=== PATIENT | female | born 1990 ===

== ENCOUNTER 2019-07-25 02:08 | Emergency (ER) | payer OTHER ==
--- NOTE | 2019-07-25 02:59 | EDM.PDOC ---
ED HPI GENERAL MEDICAL PROBLEM - General Chief Complaint: POURER BUGGY LADLE Problem Stated Complaint: AND SPOTTING Time Seen by Provider: 07/25/19 03:56 - History of Present Illness INITIAL COMMENTS - FREE TEXT/NARRATIVE: HISTORY AND PHYSICAL: History of present illness: Patient 28-year-old female who presents with a positive home test and spotting 24 hours she denies cramping or pain fever chills trauma nausea vomiting or other complaints. Review of systems: As per history of present illness and below otherwise all systems reviewed and negative. Past medical history: As per history of present illness and as reviewed below otherwise noncontributory. Surgical history: As per history of present illness and as reviewed below otherwise noncontributory. Social history: No reported history of drug or alcohol abuse. Family history: As per history of present illness and as reviewed below otherwise noncontributory. Physical exam: HEENT: Atraumatic, normocephalic, pupils reactive, negative for conjunctival pallor or scleral icterus, mucous membranes moist, throat clear, neck supple, nontender, trachea midline. Lungs: Clear to auscultation, breath sounds equal bilaterally, chest nontender. Heart: S1S2, regular, negative for clicks, rubs, or JVD. Abdomen: Soft, nondistended, nontender. Negative for masses or hepatosplenomegaly. Negative for costovertebral tenderness. Pelvis: Stable nontender. Genitourinary: Deferred. Rectal: Deferred. Extremities: Atraumatic, negative for cords or calf pain. Neurovascular unremarkable. Neuro: Awake, alert, oriented. Cranial nerves II through XII unremarkable. Cerebellum unremarkable. Motor and sensory unremarkable throughout. Exam nonfocal. Diagnostics: CBC CMP ABO Rh quantitative beta first trimester ultrasound Therapeutics: None Impression: # 1 threatened Definitive disposition and diagnosis as appropriate pending reevaluation and review of above. lower L abdominal crampingh Pain Score (Numeric/FACES): 3 - Related Data Allergies Allergy/AdvReac Type Severity Reaction Status Date / Time No Known Allergies Allergy Verified 07/25/19 02:19 Home Meds: Home Meds Pnv No.95/Ferrous Fum/Folic AC [ Caplet] 1 each PO DAILY 12/14/18 [ History] Past Medical History POURER BUGGY LADLE History: Reports: Other POURER BUGGY LADLE History: currently 29 weeks Endocrine/Metabolic History: Reports: Diabetes, Gestational - Infectious Disease History Infectious Disease History: Reports: Chicken Pox - Past Surgical History GI Surgical History: Reports: Appendectomy Social & Family History - Tobacco Use Smoking Status *Q: Never Smoker - Recreational Drug Use Recreational Drug Use: No ED ROS GENERAL - Review of Systems Review Of Systems: ROS reveals no pertinent complaints other than HPI. 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 She was prescribed Keflex. She is to follow-up for repeat quantitative beta on Sunday. Last Recorded V/S: Last Vital Signs Temp 35.9 C 07/25/19 02:15 Pulse 71 07/25/19 02:15 Resp 18 07/25/19 02:15 BP 114/76 07/25/19 02:15 Pulse Ox - Orders/Labs/Meds Orders: Active Orders 24 hr Category Date Time Status CULTURE URINE [RM] Stat Lab 07/25/19 02:48 Received Labs: Laboratory Tests 07/25/19 07/25/19 07/25/19 Range/Units 02:31 02:31 02:31 WBC 7.21 (4.0-11.0) K/uL RBC 4.40 (4.30-5.90) M/uL Hgb 13.3 (12.0-16.0) g/dL Hct 39.4 (36.0-46.0) % MCV 89.5 (80.0-98.0) fL MCH 30.2 (27.0-32.0) pg MCHC 33.8 (31.0-37.0) g/dL RDW Std Deviation 41.8 (28.0-62.0) fl RDW Coeff of Katie 13 (11.0-15.0) % Plt Count 212 (150-400) K/uL MPV 11.00 (7.40-12.00) fL Neut % (Auto) 52.1 (48.0-80.0) % Lymph % (Auto) 38.0 (16.0-40.0) % Cottle % (Auto) 7.9 (0.0-15.0) % Eos % (Auto) 1.7 (0.0-7.0) % Baso % (Auto) 0.3 (0.0-1.5) % Neut # (Auto) 3.8 (1.4-5.7) K/uL Lymph # (Auto) 2.7 H (0.6-2.4) K/uL Cottle # (Auto) 0.6 (0.0-0.8) K/uL Eos # (Auto) 0.1 (0.0-0.7) K/uL Baso # (Auto) 0.0 (0.0-0.1) K/uL Nucleated RBC % 0.0 /100WBC Nucleated RBCs # 0 K/uL Sodium 141 (136-145) mmol/L Potassium 3.7 (3.5-5.1) mmol/L Chloride 105 (98-107) mmol/L Carbon Dioxide 23.6 (21.0-32.0) mmol/L BUN 7 (7.0-18.0) mg/dL Creatinine 0.8 (0.6-1.0) mg/dL Est Cr Clr Drug Dosing 103.63 mL/min Estimated GFR (MDRD) > 60.0 ml/min Glucose 106 (74-106) mg/dL Calcium 8.6 (8.5-10.1) mg/dL Total Bilirubin 0.3 (0.2-1.0) mg/dL AST 15 (15-37) IU/L ALT 23 (14-63) IU/L Alkaline Phosphatase 73 (46-116) U/L Total Protein 7.6 (6.4-8.2) g/dL Albumin 3.7 (3.4-5.0) g/dL Globulin 3.9 (2.6-4.0) g/dL Albumin/Globulin Ratio 0.9 (0.9-1.6) HCG, Quant 7745.0 mIU/mL Urine Color Urine Appearance Urine pH (5.0-8.0) Ur Specific [place] (1.001-1.035) Urine Protein (NEGATIVE) mg/dL Urine Glucose (UA) (NEGATIVE) mg/dL Urine Ketones (NEGATIVE) mg/dL Urine Occult Blood (NEGATIVE) Urine Nitrite (NEGATIVE) Urine Bilirubin (NEGATIVE) Urine Urobilinogen (<2.0) EU/dL Ur Leukocyte Esterase (NEGATIVE) Urine RBC (0-2/HPF) Urine WBC (0-5/HPF) Ur Epithelial Cells (NONE-FEW) Urine Bacteria (NEGATIVE) Urine Mucus (NONE-MOD) Blood Type O POSITIVE 07/25/19 Range/Units 02:48 WBC (4.0-11.0) K/uL RBC (4.30-5.90) M/uL Hgb (12.0-16.0) g/dL Hct (36.0-46.0) % MCV (80.0-98.0) fL MCH (27.0-32.0) pg MCHC (31.0-37.0) g/dL RDW Std Deviation (28.0-62.0) fl RDW Coeff of Katie (11.0-15.0) % Plt Count (150-400) K/uL MPV (7.40-12.00) fL Neut % (Auto) (48.0-80.0) % Lymph % (Auto) (16.0-40.0) % Cottle % (Auto) (0.0-15.0) % Eos % (Auto) (0.0-7.0) % Baso % (Auto) (0.0-1.5) % Neut # (Auto) (1.4-5.7) K/uL Lymph # (Auto) (0.6-2.4) K/uL Cottle # (Auto) (0.0-0.8) K/uL Eos # (Auto) (0.0-0.7) K/uL Baso # (Auto) (0.0-0.1) K/uL Nucleated RBC % /100WBC Nucleated RBCs # K/uL Sodium (136-145) mmol/L Potassium (3.5-5.1) mmol/L Chloride (98-107) mmol/L Carbon Dioxide (21.0-32.0) mmol/L BUN (7.0-18.0) mg/dL Creatinine (0.6-1.0) mg/dL Est Cr Clr Drug Dosing mL/min Estimated GFR (MDRD) ml/min Glucose (74-106) mg/dL Calcium (8.5-10.1) mg/dL Total Bilirubin (0.2-1.0) mg/dL AST (15-37) IU/L ALT (14-63) IU/L Alkaline Phosphatase (46-116) U/L Total Protein (6.4-8.2) g/dL Albumin (3.4-5.0) g/dL Globulin (2.6-4.0) g/dL Albumin/Globulin Ratio (0.9-1.6) HCG, Quant mIU/mL Urine Color YELLOW Urine Appearance SLT CLOUDY Urine pH 5.5 (5.0-8.0) Ur Specific [place] <= 1.005 (1.001-1.035) Urine Protein NEGATIVE (NEGATIVE) mg/dL Urine Glucose (UA) NEGATIVE (NEGATIVE) mg/dL Urine Ketones NEGATIVE (NEGATIVE) mg/dL Urine Occult Blood LARGE H (NEGATIVE) Urine Nitrite NEGATIVE (NEGATIVE) Urine Bilirubin NEGATIVE (NEGATIVE) Urine Urobilinogen 0.2 (<2.0) EU/dL Ur Leukocyte Esterase LARGE H (NEGATIVE) Urine RBC 0-1 (0-2/HPF) Urine WBC 0-3 (0-5/HPF) Ur Epithelial Cells FEW (NONE-FEW) Urine Bacteria 3+ H (NEGATIVE) Urine Mucus LIGHT (NONE-MOD) Blood Type Departure - Departure Time of Disposition: 02:58 Disposition: Home, Self-Care 01 Condition: Good Clinical Impression: Threatened , UTI (urinary tract infection) - Discharge Information Referrals: PCP,None [Primary Care Provider] - Forms: ED Department Discharge Additional Instructions: The following information is given to patients seen in the emergency department who are being discharged to home. This information is to outline your options for follow-up care. We provide all patients seen in our emergency department with a follow-up referral. The need for follow-up, as well as the timing and circumstances, are variable depending upon the specifics of your emergency department visit. If you don't have a primary care physician on staff, we will provide you with a referral. We always advise you to contact your personal physician following an emergency department visit to inform them of the circumstance of the visit and for follow-up with them and/or the need for any referrals to a consulting specialist. The emergency department will also refer you to a specialist when appropriate. This referral assures that you have the opportunity for followup care with a specialist. All of these measure are taken in an effort to provide you with optimal care, which includes your followup. Under all circumstances we always encourage you to contact your private physician who remains a resource for coordinating your care. When calling for followup care, please make the office aware that this follow-up is from your recent emergency room visit. If for any reason you are refused follow-up, please contact the [facility] emergency department at and asked to speak to the emergency department charge nurse. Repeat quantitative beta hCG as discussed Vaginal rest follow-up POURER BUGGY LADLE return as needed as discussed Keflex as prescribed - My Orders Last 24 Hours: My Active Orders 07/25/19 02:48 CULTURE URINE [RM] Stat - Assessment/Plan Last 24 Hours: My Active Orders 07/25/19 02:48 CULTURE URINE [RM] Stat
[2019-07-25 03:26] LABS: BLOOD UREA NITROGEN,BUN 7 mg/dL (7.0-18.0); CARBON DIOXIDE,CO2 23.6 mmol/L (21.0-32.0); CHLORIDE,CL 105 mmol/L (98-107); GLUCOSE RANDOM 106 mg/dL (74-106); POTASSIUM,K 3.7 mmol/L (3.5-5.1); SODIUM,NA 141 mmol/L (136-145)
--- NOTE | 2019-07-25 04:03 | US ---
INDICATION: Spotting TECHNIQUE: Ultrasound OB pelvis transvaginal. Real-time deluca-scale imaging of the pelvis was performed. COMPARISON: None available FINDINGS: An intrauterine gestation is seen, containing a pole with a crown-rump length of 3 mm, corresponding to 6 weeks and 1 day. No cardiac activity is seen. A yolk sac is seen, measuring 2 mm. The right ovary measures 2.1 x 3.8 x 3.0 cm and the left ovary measures 3.3 x 2.2 x 2.4 cm. Doppler flow is documented in both ovaries. There is a probable left ovarian corpus luteum. No significant free fluid is seen. IMPRESSION: An intrauterine gestational sac at 6 weeks and 1 day by crown-rump length. No cardiac activity seen. The findings are concerning for a nonviable gestation, however given the early gestational age, correlation with beta hCG levels and a short-term follow-up study are recommended to reassess viability. Dictated by Tadeo Og MD @ 07/25/2019 4:01:59 AM Dictated by: Tadeo Og MD @ 07/25/2019 04:02:11 (Electronically Signed)
== END 2019-07-25 04:25 | disposition home or self-care (01) ==
LOC: MW.ED 02:08
DX: O20.0 Threatened abortion (principal); O23.41 Unspecified infection of urinary tract in pregnancy, first trimester; Z3A.01 Less than 8 weeks gestation of pregnancy
CPT/HCPCS: 36415; 76801; 76801-26; 80053; 81001; 84702; 85025; 86900; 86901; 87086; 99283; 99284-25

== ENCOUNTER 2020-01-28 22:50 | Emergency (ER) | payer SELFPAY ==
[2020-01-28] MEDS ORDERED: Sodium Chloride 0.9% 1,000 ML IV ONE (23:27)
--- NOTE | 2020-01-28 23:27 | EDM.PDOC ---
ED HPI GENERAL MEDICAL PROBLEM - General Chief Complaint: CAN HANDLER Problem Stated Complaint: 12 WEEKS /VAGINAL BLEEDING Time Seen by Provider: 01/28/20 23:16 Source of Information: Reports: Patient History Limitations: Reports: No Limitations - History of Present Illness INITIAL COMMENTS - FREE TEXT/NARRATIVE: Patient is a 29-year-old female who is 12 weeks . She is here because she noted a few spots of blood when she wiped herself with urination today. She is having very slight dysuria. She denies any fever or chills. Patient states she has had a pelvic ultrasound which showed an IUP done last month. She is complaining of very slight crampy pelvic pain. She is not been nauseous and has not been vomiting. She denies any back pain. She is not feeling orthostatic. Patient is concerned because she has had a miscarriage last year and is worried about the bleeding. Patient has been several times before. She is O+ blood type. Onset: Today Location: Reports: Abdomen Quality: Reports: Ache Severity: Mild Improves with: Reports: None Worsens with: Reports: None Associated Symptoms: Reports: No Other Symptoms Abdomen Pain Score (Numeric/FACES): 3 - Related Data Allergies Allergy/AdvReac Type Severity Reaction Status Date / Time No Known Allergies Allergy Verified 01/28/20 23:15 Home Meds: Home Meds Pnv No.95/Ferrous Fum/Folic AC [ Caplet] 1 each PO DAILY 12/14/18 [ History] cephALEXin [Cephalexin] 500 mg PO TID #20 capsule 01/29/20 [Rx] Past Medical History CAN HANDLER History: Reports: Other CAN HANDLER History: currently 29 weeks Endocrine/Metabolic History: Reports: Diabetes, Gestational - Infectious Disease History Infectious Disease History: Reports: Chicken Pox - Past Surgical History GI Surgical History: Reports: Appendectomy Social & Family History - Tobacco Use Smoking Status *Q: Never Smoker Second Hand Smoke Exposure: No - Caffeine Use Caffeine Use: Reports: None - Recreational Drug Use Recreational Drug Use: No ED ROS GENERAL - Review of Systems Review Of Systems: Comprehensive ROS is negative, except as noted in HPI. ED EXAM, RENAL/ - Physical Exam Exam: See Below Exam Limited By: No Limitations General Appearance: Alert, No Apparent Distress Head: Atraumatic Neck: Normal Inspection Respiratory/Chest: No Respiratory Distress, Lungs Clear, Normal Breath Sounds Cardiovascular: Regular Rate, Rhythm GI/Abdominal: Normal Bowel Sounds, Soft, Non-Tender Back Exam: Normal Inspection. No: CVA Tenderness (L), CVA Tenderness (R) Extremities: Normal Inspection Neurological: Alert, Oriented Skin Exam: Warm, Dry Course - Vital Signs Text/Narrative:: Patient's urine is positive for leukocytes. I am starting her on cephalexin. She is given a liter of IV fluid. She has a baseline quantitative beta-hCG pending. I am recommend she follow-up with her parts inspector in 2 days to recheck a second quant. She may return to emergency department if the amount of bleeding's increased or she is having more abdominal pain. May take Tylenol as needed. Last Recorded V/S: Last Vital Signs Temp 36.2 C 01/28/20 23:11 Pulse 80 01/28/20 23:11 Resp 14 01/28/20 23:11 BP 117/67 01/28/20 23:11 Pulse Ox 98 01/28/20 23:11 - Orders/Labs/Meds Orders: Active Orders 24 hr Category Date Time Status HCG QUANTITATIVE [CHEM] Stat Lab 01/28/20 23:30 Received Sodium Chloride 0.9% [Normal Saline] 1,000 ml Med 01/28/20 23:27 Active IV .BOLUS Medication Orders Sodium Chloride (Normal Saline) 1,000 mls @ 999 mls/hr IV .BOLUS ONE Stop: 01/29/20 00:27 Last Admin: 01/28/20 23:44 Dose: 999 mls/hr Labs: Laboratory Tests 01/28/20 Range/Units 23:10 Urine Color YELLOW Urine Appearance CLEAR Urine pH 6.5 (5.0-8.0) Ur Specific [place] 1.010 (1.001-1.035) Urine Protein NEGATIVE (NEGATIVE) mg/dL Urine Glucose (UA) NEGATIVE (NEGATIVE) mg/dL Urine Ketones NEGATIVE (NEGATIVE) mg/dL Urine Occult Blood LARGE H (NEGATIVE) Urine Nitrite NEGATIVE (NEGATIVE) Urine Bilirubin NEGATIVE (NEGATIVE) Urine Urobilinogen 0.2 (<2.0) EU/dL Ur Leukocyte Esterase SMALL H (NEGATIVE) Urine RBC 3-5 (0-2/HPF) Urine WBC 1-2 (0-5/HPF) Ur Epithelial Cells RARE (NONE-FEW) Urine Bacteria RARE (NEGATIVE) Urinalysis Comment Meds: Medications Generic Name Dose Route Start Last Admin Trade Name Freq PRN Reason Stop Dose Admin Sodium Chloride 1,000 mls @ 999 mls/hr 01/28/20 23:27 01/28/20 23:44 Normal Saline IV 01/29/20 00:27 999 mls/hr .BOLUS ONE Administration Discontinued Medications Generic Name Dose Route Start Last Admin Trade Name Freq PRN Reason Stop Dose Admin Cephalexin 500 mg 01/28/20 23:50 Keflex PO 01/28/20 23:51 ONETIME ONE Departure - Departure Time of Disposition: 00:03 Disposition: Home, Self-Care 01 Condition: Good Clinical Impression: First trimester bleeding, Urinary tract infection - Discharge Information Instructions: Vaginal Bleeding During , First Trimester, Urinary Tract Infection, Adult Referrals: PCP,None [Primary Care Provider] - Forms: ED Department Discharge Additional Instructions: Keflex as prescribed. Follow-up with OB in 2 days for recheck. Return to ER symptoms are worse. Call as needed. Increase fluids. Care Plan Goals: The following information is given to patients seen in the emergency department who are being discharged to home. This information is to outline your options for follow-up care. We provide all patients seen in our emergency department with a follow-up referral. The need for follow-up, as well as the timing and circumstances, are variable depending upon the specifics of your emergency department visit. If you don't have a primary care physician on staff, we will provide you with a referral. We always advise you to contact your personal physician following an emergency department visit to inform them of the circumstance of the visit and for follow-up with them and/or the need for any referrals to a consulting specialist. The emergency department will also refer you to a specialist when appropriate. This referral assures that you have the opportunity for follow-up care with a specialist. All of these measure are taken in an effort to provide you with optimal care, which includes your follow-up. Under all circumstances we always encourage you to contact your private physician who remains a resource for coordinating your care. When calling for follow-up care, please make the office aware that this follow-up is from your recent emergency room visit. If for any reason you are refused follow-up, please contact the [facility] Emergency Department at and asked to speak to the emergency department charge nurse. Sepsis Event Note - Evaluation Sepsis Screening Result: No Definite Risk - Focused Exam Vital Signs: Vital Signs Temp Pulse Resp BP Pulse Ox 01/28/20 23:11 36.2 C 80 14 117/67 98 Date Exam was Performed: 01/28/20 Time Exam was Performed: 23:59 - My Orders Last 24 Hours: My Active Orders 01/28/20 23:27 Sodium Chloride 0.9% [Normal Saline] 1,000 ml IV .BOLUS 01/28/20 23:30 HCG QUANTITATIVE [CHEM] Stat - Assessment/Plan Last 24 Hours: My Active Orders 01/28/20 23:27 Sodium Chloride 0.9% [Normal Saline] 1,000 ml IV .BOLUS 01/28/20 23:30 HCG QUANTITATIVE [CHEM] Stat
[2020-01-28] MEDS ORDERED: Cephalexin 500 MG Cap PO ONE (23:50)
== END 2020-01-29 00:29 | disposition home or self-care (01) ==
LOC: MW.ED 22:50
DX: O23.41 Unspecified infection of urinary tract in pregnancy, first trimester (principal); Z3A.12 12 weeks gestation of pregnancy
CPT/HCPCS: 36415; 81001; 84702; 96360; 99284; A9270; J7030; 99283

== ENCOUNTER 2020-03-06 10:34 | Emergency (ER) | payer MEDICAID ==
[2020-03-06] MEDS ORDERED: Sodium Chloride 0.9% 1,000 ML IV ONE (10:45)
[2020-03-06] MEDS ORDERED: Sodium Chloride 0.9% 10 ML Syringe FLUSH PRN (10:45)
[2020-03-06] MEDS ORDERED: Sodium Chloride 0.9% 2.5 ML Syringe FLUSH PRN (10:45)
--- NOTE | 2020-03-06 10:52 | EDM.PDOC ---
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 18 WKS Time Seen by Provider: 03/06/20 10:39 - History of Present Illness INITIAL COMMENTS - FREE TEXT/NARRATIVE: History of present illness: 29-year-old female presenting with abdominal pain, low back pain and vaginal spotting last night. She is 18 weeks , due date July 28, she is uncertain of the date of her LMP. G4, P2. No prior complications with this or other pregnancies in the past. She did report she had an ultrasound yesterday at a private facility for a gender reveal, and they told her the baby was fine at that time. No nausea or vomiting. No fevers. No cough or difficulty breathing. She does report that the vaginal bleeding stopped last night. Review of systems: As per history of present illness and below otherwise all systems reviewed and negative. Past medical history: As per history of present illness and as reviewed below otherwise noncontributory. Surgical history: As per history of present illness and as reviewed below otherwise noncontributory. Appendectomy, for second delivery Social history: No reported history of drug or alcohol abuse. No tobacco Family history: As per history of present illness and as reviewed below otherwise noncontributory. Physical exam: HEENT: Atraumatic, normocephalic, mucous membranes moist Neck: supple, nontender, trachea midline. Lungs: No respiratory distress. Heart: RRR Abdomen: Soft, nondistended, diffuse mild abdominal tenderness, no rebound or guarding. Nonfocal exam. Back: Mild bilateral CVA tenderness/low back Pelvis: Stable nontender. Extremities: Atraumatic. Neurovascularly unremarkable. Neuro: Awake, alert, oriented. Neuro Exam nonfocal. Diagnostics: Abdominal ultrasound to evaluate UTI. Ultrasound shows intact heart tones, living fetus, normal anatomic appearance, no placental abruption or other acute serious abnormality. Therapeutics: tylenol, IVFluid MDM: Abdominal pain, vaginal spotting yesterday now resolved. Low back pain. 18 weeks . Ultrasound showing living fetus without distress or placental abruption or other concerning findings. Labs unremarkable including a serum WBC not elevated. No anemia. UA shows UTI. Patient felt much better after Tylenol and IV fluids here as well as resting. Plan antibiotic treatment and rapid OB follow-up. Patient agrees with this plan. Impression: [] Plan: [] Definitive disposition and diagnosis as appropriate pending reevaluation and review of above. 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 weeks Endocrine/Metabolic History: Reports: Diabetes, Gestational - Infectious Disease History Infectious Disease History: Reports: Chicken Pox - Past Surgical History GI Surgical History: Reports: Appendectomy Social & Family History - Family History Family Medical History: Noncontributory - Caffeine Use Caffeine Use: Reports: None ED ROS GENERAL - Review of Systems Review Of Systems: See Below (See dictation) ED EXAM - Physical Exam Exam: See Below (See dictation) Course - Vital Signs Last Recorded V/S: Last Vital Signs Temp 96.7 F L 03/06/20 10:46 Pulse 91 03/06/20 12:13 Resp 16 03/06/20 11:39 BP 99/56 L 03/06/20 12:13 Pulse Ox 98 03/06/20 12:13 - Orders/Labs/Meds Orders: Active Orders 24 hr Category Date Time Status Sodium Chloride 0.9% [Saline Flush] Med 03/06/20 10:45 Active 10 ml FLUSH ASDIRECTED PRN Sodium Chloride 0.9% [Saline Flush] Med 03/06/20 10:45 Active 2.5 ml FLUSH ASDIRECTED PRN Saline Lock Insert [OM.PC] Stat Oth 03/06/20 10:45 Ordered Medication Orders Sodium Chloride (Saline Flush) 10 ml FLUSH ASDIRECTED PRN PRN Reason: Keep Vein Open Last Admin: 03/06/20 11:38 Dose: 10 ml Sodium Chloride (Saline Flush) 2.5 ml FLUSH ASDIRECTED PRN PRN Reason: Keep Vein Open Last Admin: 03/06/20 11:38 Dose: 2.5 ml Labs: Laboratory Tests 03/06/20 03/06/20 03/06/20 Range/Units 11:00 11:00 11:00 WBC 9.85 (4.0-11.0) K/uL RBC 4.29 L (4.30-5.90) M/uL Hgb 13.1 (12.0-16.0) g/dL Hct 38.9 (36.0-46.0) % MCV 90.7 (80.0-98.0) fL MCH 30.5 (27.0-32.0) pg MCHC 33.7 (31.0-37.0) g/dL RDW Std Deviation 43.7 (28.0-62.0) fl RDW Coeff of Katie 13 (11.0-15.0) % Plt Count 152 (150-400) K/uL MPV 11.70 (7.40-12.00) fL Neut % (Auto) 78.8 (48.0-80.0) % Lymph % (Auto) 15.6 L (16.0-40.0) % [place] % (Auto) 5.1 (0.0-15.0) % Eos % (Auto) 0.4 (0.0-7.0) % Baso % (Auto) 0.1 (0.0-1.5) % Neut # (Auto) 7.8 H (1.4-5.7) K/uL Lymph # (Auto) 1.5 (0.6-2.4) K/uL [place] # (Auto) 0.5 (0.0-0.8) K/uL Eos # (Auto) 0.0 (0.0-0.7) K/uL Baso # (Auto) 0.0 (0.0-0.1) K/uL Nucleated RBC % 0.0 /100WBC Nucleated RBCs # 0 K/uL Sodium 138 (136-145) mmol/L Potassium 3.9 (3.5-5.1) mmol/L Chloride 103 (98-107) mmol/L Carbon Dioxide 22.0 (21.0-32.0) mmol/L BUN 4 L (7.0-18.0) mg/dL Creatinine 0.7 (0.6-1.0) mg/dL Est Cr Clr Drug Dosing 117.39 mL/min Estimated GFR (MDRD) > 60.0 ml/min Glucose 108 H (74-106) mg/dL Calcium 8.5 (8.5-10.1) mg/dL Total Bilirubin 0.4 (0.2-1.0) mg/dL AST 16 (15-37) IU/L ALT 8 L (14-63) IU/L Alkaline Phosphatase 66 (46-116) U/L Total Protein 7.3 (6.4-8.2) g/dL Albumin 3.4 (3.4-5.0) g/dL Globulin 3.9 (2.6-4.0) g/dL Albumin/Globulin Ratio 0.9 (0.9-1.6) Urine Color YELLOW Urine Appearance SLT CLOUDY Urine pH 7.0 (5.0-8.0) Ur Specific Girdler 1.015 (1.001-1.035) Urine Protein 100 H (NEGATIVE) mg/dL Urine Glucose (UA) NEGATIVE (NEGATIVE) mg/dL Urine Ketones NEGATIVE (NEGATIVE) mg/dL Urine Occult Blood LARGE H (NEGATIVE) Urine Nitrite NEGATIVE (NEGATIVE) Urine Bilirubin NEGATIVE (NEGATIVE) Urine Urobilinogen 0.2 (<2.0) EU/dL Ur Leukocyte Esterase MODERATE H (NEGATIVE) Urine RBC 3-5 (0-2/HPF) Urine WBC 30-40 (0-5/HPF) Ur Epithelial Cells FEW (NONE-FEW) Urine Bacteria 1+ H (NEGATIVE) Blood Type 03/06/20 Range/Units 11:00 WBC (4.0-11.0) K/uL RBC (4.30-5.90) M/uL Hgb (12.0-16.0) g/dL Hct (36.0-46.0) % MCV (80.0-98.0) fL MCH (27.0-32.0) pg MCHC (31.0-37.0) g/dL RDW Std Deviation (28.0-62.0) fl RDW Coeff of Katie (11.0-15.0) % Plt Count (150-400) K/uL MPV (7.40-12.00) fL Neut % (Auto) (48.0-80.0) % Lymph % (Auto) (16.0-40.0) % [place] % (Auto) (0.0-15.0) % Eos % (Auto) (0.0-7.0) % Baso % (Auto) (0.0-1.5) % Neut # (Auto) (1.4-5.7) K/uL Lymph # (Auto) (0.6-2.4) K/uL [place] # (Auto) (0.0-0.8) K/uL Eos # (Auto) (0.0-0.7) K/uL Baso # (Auto) (0.0-0.1) K/uL Nucleated RBC % /100WBC Nucleated RBCs # K/uL Sodium (136-145) mmol/L Potassium (3.5-5.1) mmol/L Chloride (98-107) mmol/L Carbon Dioxide (21.0-32.0) mmol/L BUN (7.0-18.0) mg/dL Creatinine (0.6-1.0) mg/dL Est Cr Clr Drug Dosing mL/min Estimated GFR (MDRD) ml/min Glucose (74-106) mg/dL Calcium (8.5-10.1) mg/dL Total Bilirubin (0.2-1.0) mg/dL AST (15-37) IU/L ALT (14-63) IU/L Alkaline Phosphatase (46-116) U/L Total Protein (6.4-8.2) g/dL Albumin (3.4-5.0) g/dL Globulin (2.6-4.0) g/dL Albumin/Globulin Ratio (0.9-1.6) Urine Color Urine Appearance Urine pH (5.0-8.0) Ur Specific Girdler (1.001-1.035) Urine Protein (NEGATIVE) mg/dL Urine Glucose (UA) (NEGATIVE) mg/dL Urine Ketones (NEGATIVE) mg/dL Urine Occult Blood (NEGATIVE) Urine Nitrite (NEGATIVE) Urine Bilirubin (NEGATIVE) Urine Urobilinogen (<2.0) EU/dL Ur Leukocyte Esterase (NEGATIVE) Urine RBC (0-2/HPF) Urine WBC (0-5/HPF) Ur Epithelial Cells (NONE-FEW) Urine Bacteria (NEGATIVE) Blood Type O POSITIVE Meds: Medications Generic Name Dose Route Start Last Admin Trade Name Freq PRN Reason Stop Dose Admin Sodium Chloride 10 ml 03/06/20 10:45 03/06/20 11:38 Saline Flush FLUSH 10 ml ASDIRECTED PRN Administration Keep Vein Open Sodium Chloride 2.5 ml 03/06/20 10:45 03/06/20 11:38 Saline Flush FLUSH 2.5 ml ASDIRECTED PRN Administration Keep Vein Open Discontinued Medications Generic Name Dose Route Start Last Admin Trade Name Akin PRN Reason Stop Dose Admin Acetaminophen 1,000 mg 03/06/20 11:11 03/06/20 11:38 Tylenol Extra Strength PO 03/06/20 11:12 1,000 mg ONETIME ONE Administration Sodium Chloride 1,000 mls @ 999 mls/hr 03/06/20 10:45 03/06/20 11:38 Normal Saline IV 03/06/20 11:45 999 mls/hr .Bolus ONE Administration - Re-Assessments/Exams Free Text/Narrative Re-Assessment/Exam: 03/06/20 13:17 Patient is feeling much better. She reports her symptoms have resolved. Discussed all results available here today, including likely UTI, labs largely unremarkable and ultrasound that shows living fetus with intact heart tones and no placental abruption or bleeding. Plan for outpatient antibiotics. Will send prescription electronically. Shamir as she is in the second trimester. Also discussed need to follow-up KALLIE with her CRATE MAKER. She will call Sunday for appointment KALLIE. Departure - Departure Time of Disposition: 13:19 Disposition: Home, Self-Care Clinical Impression: UTI in , Abdominal pain affecting , Intrauterine - Discharge Information Instructions: and Urinary Tract Infection, Abdominal Pain During , [id number], Preventing Injuries During , [id number], Second Trimester of , [id number] Referrals: Nicole Schmidt CNM [Primary Care Provider] - Forms: ED Department Discharge Additional Instructions: The following information is given to patients seen in the emergency department who are being discharged to home. This information is to outline your options for follow-up care. We provide all patients seen in our emergency department with a follow-up referral. The need for follow-up, as well as the timing and circumstances, are variable depending upon the specifics of your emergency department visit. If you don't have a primary care physician on staff, we will provide you with a referral. We always advise you to contact your personal physician following an emergency department visit to inform them of the circumstance of the visit and for follow-up with them and/or the need for any referrals to a consulting specialist. The emergency department will also refer you to a specialist when appropriate. This referral assures that you have the opportunity for follow-up care with a specialist. All of these measure are taken in an effort to provide you with optimal care, which includes your follow-up. Under all circumstances we always encourage you to contact your private physician who remains a resource for coordinating your care. When calling for follow-up care, please make the office aware that this follow-up is from your recent emergency room visit. If for any reason you are refused follow-up, please contact the [facility] Emergency Department at and asked to speak to the emergency department charge nurse. [facility] [address] [place] [id number] [facility] [address] [place] [address] Sepsis Event Note (ED) - Focused Exam Vital Signs: Vital Signs Temp Pulse Resp BP Pulse Ox 03/06/20 12:13 91 99/56 L 98 03/06/20 11:39 81 16 124/72 97 03/06/20 10:46 96.7 F L 88 16 119/74 97 - My Orders Last 24 Hours: My Active Orders 03/06/20 10:45 Sodium Chloride 0.9% [Saline Flush] 10 ml FLUSH ASDIRECTED PRN Sodium Chloride 0.9% [Saline Flush] 2.5 ml FLUSH ASDIRECTED PRN Saline Lock Insert [OM.PC] Stat - Assessment/Plan Last 24 Hours: My Active Orders 03/06/20 10:45 Sodium Chloride 0.9% [Saline Flush] 10 ml FLUSH ASDIRECTED PRN Sodium Chloride 0.9% [Saline Flush] 2.5 ml FLUSH ASDIRECTED PRN Saline Lock Insert [OM.PC] Stat
[2020-03-06] MEDS ORDERED: Acetaminophen 500 MG Tab PO ONE (11:11)
[2020-03-06 11:31] LABS: BLOOD UREA NITROGEN,BUN 4 mg/dL (7.0-18.0); CHLORIDE,CL 103 mmol/L (98-107); GLUCOSE RANDOM 108 mg/dL (74-106); POTASSIUM,K 3.9 mmol/L (3.5-5.1); SODIUM,NA 138 mmol/L (136-145)
--- NOTE | 2020-03-06 12:50 | US ---
INDICATION: Vaginal bleeding, cramping, 2nd trimester . Estimated gestational age based on LMP is 19 weeks 3 days). TECHNIQUE: Ultrasound OB pelvis transabdominal. Real time deluca scale imaging of the fetus was performed. Color Doppler and spectral Doppler analysis of the umbilical artery. COMPARISON: None FINDINGS: Sonographic imaging demonstrates a single living intrauterine gestation in breech position. Fetus demonstrates a cardiac rate of 156 beats per minute. The placenta lies anterior, without evidence of placenta previa. Amniotic fluid volume appears normal, with an NICOLE measurement 12.7 cm. Cervical length measures 3.7 cm. On anatomy survey, of the lateral ventricles, cisterna magna, cavum septum pellucidum, four-chamber heart, outflow tracts, and bladder. The face is within normal limits. There are four extremities. There is a three-vessel cord. The kidneys, stomach, and transverse images of the spine are suboptimal, likely due to positioning. Biometric data: Biparietal diameter: 4.29 cm-19 weeks 0 days. Head circumference: 15.63 cm-18 weeks 4 days. Abdominal circumference: 12.95 cm-18 weeks 4 days. Femur length: 2.74 cm-18 weeks 3 days. The composite ultrasound gestational age is calculated at 18 weeks 5 days with an estimated sonographic due date of 08/02/2020. The estimated weight is 241 grams which lies at the 7th percentile%. IMPRESSION: 1. Single living intrauterine gestation in breech presentation, with a composite ultrasound gestational age of 18 weeks 5 days, which is concordant with estimated gestational age by LMP. 2. Estimated weight 241 grams (7th percentile). 3. Anterior placenta, without evidence of placenta previa. 4. kidneys, stomach, and spine not well visualized, likely due to positioning. These could be re-evaluated on follow-up ultrasound. Remainder anatomy scan within normal limits. Dictated by Nena Domingo MD @ 03/06/2020 12:49:54 PM Dictated by: Nena Domingo MD @ 03/06/2020 12:49:59 (Electronically Signed)
== END 2020-03-06 13:34 | disposition home or self-care (01) ==
LOC: MW.ED 10:34
DX: O23.42 Unspecified infection of urinary tract in pregnancy, second trimester (principal); Z90.49 Acquired absence of other specified parts of digestive tract; Z3A.18 18 weeks gestation of pregnancy
CPT/HCPCS: 36415; 76815; 80053; 81001; 85025; 86900; 86901; 99284; A9270; J7030

== ENCOUNTER 2020-07-29 05:05 | Inpatient (IN) | payer MEDICAID ==
[2020-07-29] MEDS ORDERED: Sodium Chloride 0.9% 2.5 ML Syringe FLUSH PRN (05:46)
[2020-07-29] MEDS ORDERED: Sodium Chloride 0.9% 10 ML SDV IV PRN (05:46)
[2020-07-29] MEDS ORDERED: Sodium Chloride 0.9% 10 ML Syringe FLUSH PRN (05:46)
[2020-07-29] MEDS: Lactated Ringers 1,000 ML IV SCH ×4 (05:56→15:34)
[2020-07-29] MEDS ORDERED: Oxytocin/0.9 % Sodium Chloride 30 UNIT/500 ML BAG IV SCH (06:00)
[2020-07-29] MEDS ORDERED: FLU VACC QS2020-21(6MOS UP)/PF 60 MCG/0.5 ML SYRINGE IM ONE (07:00)
[2020-07-29] MEDS ORDERED: Oxytocin 10 Units/1 ML SDV ONE (07:11)
[2020-07-29] MEDS ORDERED: Morphine PF 10 MG/10 ML SDV ONE (07:11)
[2020-07-29] MEDS ORDERED: Ondansetron 4 MG/2 ML SDV ONE (07:11)
[2020-07-29] MEDS ORDERED: Sodium Chloride 0.9% 20 ML ONE (07:16)
[2020-07-29] MEDS ORDERED: ceFAZolin 1 GM Vial ONE (07:16)
[2020-07-29] MEDS ORDERED: Octyl 2-Cyanoacrylate 1 Tube ONE (07:25)
--- NOTE | 2020-07-29 07:35 | PCM.PREANE ---
Preanesthetic Assessment - Anesthesia/Transfusion/Family Hx Anesthesia History: Prior Anesthesia Without Reaction Family History of Anesthesia Reaction: No Transfusion History: No Prior Transfusion(s) - Review of Systems General: No Symptoms Pulmonary: No Symptoms Cardiovascular: No Symptoms Gastrointestinal: No Symptoms Neurological: No Symptoms Other: Reports: None - Physical Assessment NPO Status Date: 07/28/20 Height: 5 ft 7 in Weight: 93.44 kg ASA Class: 2 Mental Status: Alert & Oriented x3 Airway Class: Mallampati = 2 Dentition: Reports: Normal Dentition ROM/Head Extension: Full Lungs: Clear to Auscultation, Normal Respiratory Effort Cardiovascular: Regular Rate, Regular Rhythm - Lab Values: Laboratory Last Values WBC 5.45 K/uL (4.0-11.0) 07/29/20 05:32 RBC 3.97 M/uL (4.30-5.90) L 07/29/20 05:32 Hgb 12.7 g/dL (12.0-16.0) 07/29/20 05:32 Hct 37.0 % (36.0-46.0) 07/29/20 05:32 MCV 93.2 fL (80.0-98.0) 07/29/20 05:32 MCH 32.0 pg (27.0-32.0) 07/29/20 05:32 MCHC 34.3 g/dL (31.0-37.0) 07/29/20 05:32 RDW Std Deviation 46.6 fl (28.0-62.0) 07/29/20 05:32 RDW Coeff of Katie 14 % (11.0-15.0) 07/29/20 05:32 Plt Count 147 K/uL (150-400) L 07/29/20 05:32 MPV 13.10 fL (7.40-12.00) H 07/29/20 05:32 Nucleated RBC % 0.0 /100WBC 07/29/20 05:32 Nucleated RBCs # 0 K/uL 07/29/20 05:32 Blood Type O POSITIVE 07/29/20 05:32 Antibody Screen NEGATIVE 07/29/20 05:32 - Allergies Allergies/Adverse Reactions: Allergies Allergy/AdvReac Type Severity Reaction Status Date / Time No Known Allergies Allergy Verified 07/29/20 05:45 - Blood Blood Available: No - Anesthesia Plan Pre-Op Medication Ordered: None - Acknowledgements Anesthesia Type Planned: Spinal Pt an Appropriate Candidate for the Planned Anesthesia: Yes Alternatives and Risks of Anesthesia Discussed w Pt/Guardian: Yes Pt/Guardian Understands and Agrees with Anesthesia Plan: Yes PreAnesthesia Questionnaire HEENT History: Reports: None Cardiovascular History: Reports: None Respiratory History: Reports: None Gastrointestinal History: Reports: None Genitourinary History: Reports: None MANAGER LIGHTING History: Reports: Musculoskeletal History: Reports: None Neurological History: Reports: None Psychiatric History: Reports: Depression Endocrine/Metabolic History: Reports: Diabetes, Gestational Hematologic History: Reports: None Immunologic History: Reports: None Oncologic (Cancer) History: Reports: None Dermatologic History: Reports: None - Infectious Disease History Infectious Disease History: Reports: None - Past Surgical History HEENT Surgical History: Reports: Oral Surgery GI Surgical History: Reports: Appendectomy Female Surgical History: Reports: Section Endocrine Surgical History: Reports: None - SUBSTANCE USE Tobacco Use Status *Q: Never Tobacco User Recreational Drug Use History: No - HOME MEDS Home Medications: Home Meds Pnv No.95/Ferrous Fum/Folic AC [ Caplet] 1 each PO DAILY 12/14/18 [History] - CURRENT (IN HOUSE) MEDS Current Meds: Current Medications Citric Acid/Sodium Citrate (Bicitra Solution) 30 ml PO ONETIME ONE Stop: 07/29/20 08:01 Oxytocin/Sodium Chloride (Oxytocin 30 Unit/500 Ml-Ns) 30 unit in 500 mls @ 250 mls/hr IV TITRATE RAFI Cefazolin Sodium/Dextrose 2 gm (/ Premix) 50 mls @ 100 mls/hr IV ONETIME ONE Stop: 07/29/20 08:29 Lactated Ringer's (Ringers, Lactated) 1,000 mls @ 500 mls/hr IV BOLUS [facility] Last Admin: 07/29/20 06:56 Dose: 999 mls/hr Documented by: Sodium Chloride (Saline Flush) 10 ml FLUSH ASDIRECTED PRN PRN Reason: Keep Vein Open Sodium Chloride (Saline Flush) 2.5 ml FLUSH ASDIRECTED PRN PRN Reason: Keep Vein Open Sodium Chloride (Normal Saline) 10 ml IV ASDIRECTED PRN PRN Reason: IV Use Discontinued Medications Cefazolin Sodium (Ancef) Confirm Administered Dose 2 gm .ROUTE .STK-MED ONE Stop: 07/29/20 07:17 Sodium Chloride (Normal Saline) Confirm Administered Dose 20 mls @ as directed .ROUTE .STK-MED ONE Stop: 07/29/20 07:17 Influenza Virus Vaccine (Pharmacy To Dose - Influenza Vaccine) 1 each IM ONETIME ONE Stop: 07/29/20 06:25 Influenza Virus Vaccine (Fluzone Quad [id number] Syringe) 60 mcg IM .ONCE ONE Stop: 07/29/20 07:01 Morphine Sulfate (Duramorph Pf) Confirm Administered Dose 10 mg .ROUTE .STK-MED ONE Stop: 07/29/20 07:12 Octyl Cyanoacrylate (Dermabond Advance) Confirm Administered Dose 1 applic .ROUTE .STK-MED ONE Stop: 07/29/20 07:26 Ondansetron HCl (Zofran) Confirm Administered Dose 4 mg .ROUTE .STK-MED ONE Stop: 07/29/20 07:12 Oxytocin (Pitocin) Confirm Administered Dose 30 unit .ROUTE .STK-MED ONE Stop: 07/29/20 07:12
--- NOTE | 2020-07-29 07:52 | PCM.LDHP ---
L&D History of Present Illness - General Date of Service: 07/29/20 Admit Problem/Dx: Patient Status Order with Admit Dx/Problem 07/29/20 05:05 Patient Status [ADT] Routine Admission Diagnosis/Problem Admission Diagnosis/Problem 07/29/20 07:47 Joan is a at 38+5 weeks gestation (JOE 07/29/2020) here for repeat low transverse section with H/O primary LTCS 01/2019. NKDA. O pos, RNI, GB S neg. No history of anesthesia complications. Hx: obesity, A1GDM. Patient reports adequate movement. FHR Cat I, reactive NST with occasional non- painful contractions. Denies LOF, vaginal bleeding. Patient denies any complaints or concerns at this time, COVID-neg. 07/29/20 07:58 Source of Information: Patient History Limitations: Reports: No Limitations - History of Present Illness Improves with: Reports: None Worsens with: Reports: None Associated Symptoms: Reports: N - Related Data Allergies/Adverse Reactions: Allergies Allergy/AdvReac Type Severity Reaction Status Date / Time No Known Allergies Allergy Verified 07/29/20 05:45 Home Medications: Home Meds Pnv No.95/Ferrous Fum/Folic AC [ Caplet] 1 each PO DAILY 12/14/18 [History] Past Medical History HEENT History: Reports: None Cardiovascular History: Reports: None Respiratory History: Reports: None Gastrointestinal History: Reports: None Genitourinary History: Reports: None 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 Musculoskeletal History: Reports: None Neurological History: Reports: None Psychiatric History: Reports: Depression Endocrine/Metabolic History: Reports: Diabetes, Gestational, Obesity/BMI 30+ Hematologic History: Reports: None Immunologic History: Reports: None Oncologic (Cancer) History: Reports: None Dermatologic History: Reports: None - Infectious Disease History Infectious Disease History: Reports: None - Past Surgical History HEENT Surgical History: Reports: Oral Surgery GI Surgical History: Reports: Appendectomy Female Surgical History: Reports: Section Endocrine Surgical History: Reports: None Social & Family History - Family History Family Medical History: Noncontributory Cardiac: Reports: High Cholesterol, Hypertension OBGYN: Reports: Psychiatric: Reports: Depression Endocrine/Metabolic: Reports: Diabetes, type II - Tobacco Use Tobacco Use Status *Q: Never Tobacco User - Caffeine Use Caffeine Use: Reports: Soda - Recreational Drug Use Recreational Drug Use: No Drug Use in Last 12 Months: No H&P Review of Systems - Review of Systems: Review Of Systems: Comprehensive ROS is negative, except as noted in HPI. General: Reports: No Symptoms HEENT: Reports: No Symptoms Pulmonary: Reports: No Symptoms Cardiovascular: Reports: No Symptoms Gastrointestinal: Reports: No Symptoms Genitourinary: Reports: No Symptoms Musculoskeletal: Reports: No Symptoms Skin: Reports: No Symptoms Psychiatric: Reports: No Symptoms Neurological: Reports: No Symptoms Hematologic/Lymphatic: Reports: No Symptoms Immunologic: Reports: No Symptoms L&D Exam - Exam Exam: See Below - Vital Signs Vital Signs: Hemodynamically stable, afebrile. See flowchart. Weight: 206 lb - OB Specific Fundal Height In cm: 39 Contraction Intensity: Irritability Movement: Active Heart Tones: Present Heart Tones per Min: 135 Heart Rate (FHR) Variability: Moderate (6-25 bmp) Presentation: Vertex - Exam General: Alert, Oriented, Cooperative HEENT: Conjunctiva Clear, Hearing Intact, Mucosa Moist & [place], PERRLA Neck: Supple, Trachea Midline Lungs: Clear to Auscultation, Normal Respiratory Effort Cardiovascular: Regular Rate, Regular Rhythm GI/Abdominal Exam: Normal Bowel Sounds, Soft, Non-Tender, No Organomegaly, No Distention Rectal Exam: Deferred Genitourinary: Enlarged uterus (Gravid uterus) Back Exam: Normal Inspection, Full Range of Motion Extremities: Normal Inspection, Normal Range of Motion, Non-Tender, No Pedal Edema, Normal Capillary Refill Skin: Warm, Dry, Intact Neurological: Cranial Nerves Intact, Reflexes Equal Bilateral Psychiatric: Alert, Normal Affect, Normal Mood - Patient Data Lab Results Last 24 hrs: Laboratory Results - last 24 hr 07/29/20 07/29/20 Range/Units 05:32 05:32 WBC 5.45 (4.0-11.0) K/uL RBC 3.97 L (4.30-5.90) M/uL Hgb 12.7 (12.0-16.0) g/dL Hct 37.0 (36.0-46.0) % MCV 93.2 (80.0-98.0) fL MCH 32.0 (27.0-32.0) pg MCHC 34.3 (31.0-37.0) g/dL RDW Std Deviation 46.6 (28.0-62.0) fl RDW Coeff of Katie 14 (11.0-15.0) % Plt Count 147 L (150-400) K/uL MPV 13.10 H (7.40-12.00) fL Nucleated RBC % 0.0 /100WBC Nucleated RBCs # 0 K/uL Blood Type O POSITIVE Antibody Screen NEGATIVE Result Diagrams: 07/29/20 05:32 - Problem List (1) Delivery by section using transverse incision of lower segment of uterus SNOMED Code(s): 488426364 ICD Code: O82 - ENCOUNTER FOR DELIVERY WITHOUT INDICATION Status: Acute Priority: High Current Visit: Yes (2) 38 weeks gestation of SNOMED Code(s): 90051045 ICD Code: Z3A.38 - 38 WEEKS GESTATION OF Status: Acute Priority: High Current Visit: Yes Problem List Initiated/Reviewed/Updated: Yes Orders Last 24hrs: Active Orders 24 hr Category Date Time Status Patient Status [ADT] Routine ADT 07/29/20 05:05 Active Non Stress Test [RC] PER UNIT ROUTINE Care 07/29/20 05:47 Active Influenza Vaccine Charge [RC] .DISCHARGE Care 07/29/20 06:24 Active Notify Provider Vital Signs [RC] PRN Care 07/29/20 05:49 Active Procedure Site Prep Instruct [RC] ASDIRECTED Care 07/29/20 05:47 Active Up ad Brianne [RC] ASDIRECTED Care 07/29/20 05:47 Active Verify Patient Consent Obtain [RC] ASDIRECTED Care 07/29/20 05:47 Active Vital Signs [RC] PER UNIT ROUTINE Care 07/29/20 05:47 Active RPR (SYPHILIS SERO) W/ RFLX [REF] Routine Lab 07/29/20 05:32 Received Citric Acid/Sodium Citrate [Bicitra Solution] Med 07/29/20 08:00 Once 30 ml PO ONETIME ONE Lactated Ringers [Ringers, Lactated] 1,000 ml Med 07/29/20 06:00 Active IV BOLUS Oxytocin/0.9 % Sodium Chloride [Oxytocin 30 Unit/500 ML Med 07/29/20 06:00 Active -NS] 30 unit in 500 ml IV TITRATE Sodium Chloride 0.9% [Normal Saline] Med 07/29/20 05:46 Active 10 ml IV ASDIRECTED PRN Sodium Chloride 0.9% [Saline Flush] Med 07/29/20 05:46 Active 10 ml FLUSH ASDIRECTED PRN Sodium Chloride 0.9% [Saline Flush] Med 07/29/20 05:46 Active 2.5 ml FLUSH ASDIRECTED PRN ceFAZolin [Ancef] 2 gm Med 07/29/20 08:00 Active Premix Bag 1 bag IV ONETIME Peripheral IV Insertion Adult [OM.PC] Routine Oth 07/29/20 05:47 Ordered Schedule Procedure [COMM] Per Unit Routine Oth 07/29/20 05:47 Ordered Resuscitation Status Routine Resus Stat 07/29/20 05:46 Ordered Medication Orders Citric Acid/Sodium Citrate (Bicitra Solution) 30 ml PO ONETIME ONE Stop: 07/29/20 08:01 Last Admin: 07/29/20 07:40 Dose: 30 ml Documented by: [email or web address] Oxytocin/Sodium Chloride (Oxytocin 30 Unit/500 Ml-Ns) 30 unit in 500 mls @ 250 mls/hr IV TITRATE [facility] Cefazolin Sodium/Dextrose 2 gm (/ Premix) 50 mls @ 100 mls/hr IV ONETIME ONE Stop: 07/29/20 08:29 Lactated Ringer's (Ringers, Lactated) 1,000 mls @ 500 mls/hr IV BOLUS [facility] Last Admin: 07/29/20 06:56 Dose: 999 mls/hr Documented by: [id number] Infusion: 07/29/20 06:56 Dose: 999 mls/hr Documented by: [id number] Admin: 07/29/20 05:56 Dose: 999 mls/hr Documented by: [id number] Sodium Chloride (Saline Flush) 10 ml FLUSH ASDIRECTED PRN PRN Reason: Keep Vein Open Sodium Chloride (Saline Flush) 2.5 ml FLUSH ASDIRECTED PRN PRN Reason: Keep Vein Open Sodium Chloride (Normal Saline) 10 ml IV ASDIRECTED PRN PRN Reason: IV Use Assessment/Plan Comment:: Plan for prophylactic surgical antibiotic regimen periop. Operative, blood, and anesthesia consents signed 07/29/2020. Perioperative checklist completed. Plan to proceed with repeat LTCS with subsequent inpatient admission.
[2020-07-29] MEDS ORDERED: ceFAZolin 2 GM in Premix Bag 1 BAG IV ONE (08:00)
[2020-07-29] MEDS ORDERED: Citric Acid/Sodium Citrate Solution 30 ML Cup PO ONE (08:00)
[2020-07-29] MEDS ORDERED: fentaNYL 100 MCG/2 ML SDV IVPUSH PRN (08:32)
[2020-07-29] MEDS ORDERED: Acetaminophen/oxyCODONE 325-5 MG Tab PO PRN ×2 (08:32→09:40)
[2020-07-29] MEDS ORDERED: Nalbuphine 10 MG/1 ML Vial IVPUSH PRN (08:32)
[2020-07-29] MEDS ORDERED: Metoclopramide 10 MG/2 ML SDV ONE (08:37)
[2020-07-29] MEDS ORDERED: diphenhydrAMINE 50 MG/ML SDV IVPUSH PRN (09:40)
[2020-07-29] MEDS ORDERED: Misoprostol 200 MCG Tab RECTAL PRN (09:40)
[2020-07-29] MEDS ORDERED: Methylergonovine 0.2 MG/1 ML Amp IM PRN (09:40)
[2020-07-29] MEDS ORDERED: Tranexamic Acid 1,000 MG in Sodium Chloride 0.9% 100 ML IV PRN (09:40)
[2020-07-29] MEDS ORDERED: Lanolin 100% Cream 7 GM Tube TOP PRN (09:40)
[2020-07-29] MEDS ORDERED: Bisacodyl 10 MG Supp RECTAL PRN (09:40)
[2020-07-29] MEDS ORDERED: Ondansetron 4 MG/2 ML SDV IVPUSH PRN (09:40)
[2020-07-29] MEDS ORDERED: Oxytocin 10 Units/1 ML SDV IM PRN (09:40)
--- NOTE | 2020-07-29 09:56 | PCM.POSTAN ---
POST ANESTHESIA ASSESSMENT - MENTAL STATUS Mental Status: Alert, Oriented - VITAL SIGNS Vital Signs: Last Vital Signs Temp 207.5 F H 07/29/20 09:14 Pulse 58 L 07/29/20 09:50 Resp 10 L 07/29/20 09:50 BP 108/72 07/29/20 09:50 Pulse Ox 93 L 07/29/20 09:50 - RESPIRATORY Respiratory Status: Respiratory Rate WNL, Airway Patent, O2 Saturation Stable - CARDIOVASCULAR CV Status: Pulse Rate WNL, Blood Pressure Stable - GASTROINTESTINAL GI Status: No Symptoms - PAIN Pain Score: 0 - POST OP HYDRATION Hydration Status: Adequate & Stable - OBSERVATIONS Free Text/Narrative:: Correction = temperature 97.5F
[2020-07-29] MEDS: Ketorolac 30 MG/ML SDV IVPUSH SCH ×3 (10:09→22:15)
--- NOTE | 2020-07-29 18:00 | PCM.DEL ---
L & D Note - General Info Date of Service: 07/29/20 Mother's Due Date: 08/07/20 - Delivery Note Delivery Outcome: Livebirth Infant Delivery Method: Repeat , Scheduled Presentation: Vertex Nuchal Cord: Reduced Anesthesia Type: None, Spinal Episiotomy Type: None Laceration: None Placenta: Intact, Spontaneous Cord: 3 Vessels Estimated Blood Loss: 650 Resuscitation Needed: No : Suctioned, Stimulated, Warmer Used Score 1 min: 9 Score 5 min: 9 Delivery Comments (Free Text/Narrative):: Delivered via uncomplicated scheduled . Delivery details: Female infant Weight: 6'15" : 9/9 EBL 650cc - General Info Date of Service: 07/29/20 Admission Dx/Problem (Free Text): Patient Status Order with Admit Dx/Problem 07/29/20 05:05 Patient Status [ADT] Routine Admission Diagnosis/Problem Admission Diagnosis/Problem 07/29/20 07:47 Joan is a at 38+5 weeks gestation (JOE 07/29/2020) here for repeat low transverse section with H/O primary LTCS 01/2019. NKDA. O pos, RNI, GBS neg. No history of anesthesia complications. Hx: obesity, A1GDM. Patient reports adequate movement. FHR Cat I, reactive NST with occasional non- painful contractions. Denies LOF, vaginal bleeding. Patient denies any complaints or concerns at this time, COVID-neg. 07/29/20 07:58 Functional Status: Reports: Pain Controlled - Patient Data Vitals - Most Recent: Last Vital Signs Temp 98.4 F 07/29/20 16:00 Pulse 68 07/29/20 15:00 Resp 18 07/29/20 16:00 BP 126/68 07/29/20 16:00 Pulse Ox 99 07/29/20 16:00 Weight - Most Recent: 93.44 kg I&O - Last 24 Hours: Intake & Output 07/29/20 07/29/20 07/29/20 06:59 14:59 22:59 Intake Total 2500 Output Total 375 Balance 2125 Lab Results Last 24 Hours: Laboratory Results - last 24 hr 07/29/20 07/29/20 Range/Units 05:32 05:32 WBC 5.45 (4.0-11.0) K/uL RBC 3.97 L (4.30-5.90) M/uL Hgb 12.7 (12.0-16.0) g/dL Hct 37.0 (36.0-46.0) % MCV 93.2 (80.0-98.0) fL MCH 32.0 (27.0-32.0) pg MCHC 34.3 (31.0-37.0) g/dL RDW Std Deviation 46.6 (28.0-62.0) fl RDW Coeff of Katie 14 (11.0-15.0) % Plt Count 147 L (150-400) K/uL MPV 13.10 H (7.40-12.00) fL Nucleated RBC % 0.0 /100WBC Nucleated RBCs # 0 K/uL Blood Type O POSITIVE Antibody Screen NEGATIVE Med Orders - Current: Current Medications Bisacodyl (Dulcolax) 10 mg RECTAL ONETIME PRN PRN Reason: Constipation Diphenhydramine HCl (Benadryl) 25 mg IVPUSH Q6H PRN PRN Reason: Itching or Nausea Last Admin: 07/29/20 11:47 Dose: 25 mg Documented by: Docusate Sodium (Colace) 100 mg PO BID [facility] Emollient Ointment (Lansinoh Hpa) 0 gm TOP ASDIRECTED PRN PRN Reason: Sore Nipples Fentanyl (Sublimaze) 50 mcg IVPUSH Q5M PRN PRN Reason: Pain (severe 7-10) Stop: 07/30/20 08:32 Oxytocin/Sodium Chloride (Oxytocin 30 Unit/500 Ml-Ns) 30 unit in 500 mls @ 250 mls/hr IV TITRATE [facility] Lactated Ringer's (Ringers, Lactated) 1,000 mls @ 500 mls/hr IV BOLUS [facility] Last Admin: 07/29/20 06:56 Dose: 999 mls/hr Documented by: Lactated Ringer's (Ringers, Lactated) 1,000 mls @ 125 mls/hr IV ASDIRECTED [facility] Last Admin: 07/29/20 15:34 Dose: 125 mls/hr Documented by: Tranexamic Acid 1,000 mg/ (Sodium Chloride) 110 mls @ 660 mls/hr IV ONETIME PRN PRN Reason: Bleeding Ibuprofen (Motrin) 800 mg PO Q8H PRN PRN Reason: mild pain or fever Ketorolac Tromethamine (Toradol) 30 mg IVPUSH Q6H RAFI Stop: 07/30/20 09:46 Last Admin: 07/29/20 16:03 Dose: 30 mg Documented by: Methylergonovine Maleate (Methergine) 0.2 mg IM ONETIME PRN PRN Reason: Excessive Vaginal Bleeding Misoprostol (Cytotec) 1,000 mcg RECTAL ONETIME PRN PRN Reason: excessive bleeding Ondansetron HCl (Zofran) 4 mg IVPUSH Q4H PRN PRN Reason: Nausea/Vomiting Last Admin: 07/29/20 10:16 Dose: 4 mg Documented by: Oxycodone/Acetaminophen (Percocet 325-5 Mg) 1 tab PO ONETIME PRN PRN Reason: Pain (moderate 4-6) Oxycodone/Acetaminophen (Percocet 325-5 Mg) 1 tab PO Q4H PRN PRN Reason: Pain (moderate 4-6) Oxycodone/Acetaminophen (Percocet 325-5 Mg) 2 tab PO Q4H PRN PRN Reason: Pain (moderate 4-6) Oxytocin (Pitocin) 10 unit IM ASDIRECTED PRN PRN Reason: Excessive Vaginal Bleeding Sodium Chloride (Saline Flush) 10 ml FLUSH ASDIRECTED PRN PRN Reason: Keep Vein Open Sodium Chloride (Saline Flush) 2.5 ml FLUSH ASDIRECTED PRN PRN Reason: Keep Vein Open Sodium Chloride (Normal Saline) 10 ml IV ASDIRECTED PRN PRN Reason: IV Use Discontinued Medications Cefazolin Sodium (Ancef) Confirm Administered Dose 2 gm .ROUTE .STK-MED ONE Stop: 07/29/20 07:17 Citric Acid/Sodium Citrate (Bicitra Solution) 30 ml PO ONETIME ONE Stop: 07/29/20 08:01 Last Admin: 07/29/20 07:40 Dose: 30 ml Documented by: Cefazolin Sodium/Dextrose 2 gm (/ Premix) 50 mls @ 100 mls/hr IV ONETIME ONE Stop: 07/29/20 08:29 Sodium Chloride (Normal Saline) Confirm Administered Dose 20 mls @ as directed .ROUTE .STK-MED ONE Stop: 07/29/20 07:17 Influenza Virus Vaccine (Pharmacy To Dose - Influenza Vaccine) 1 each IM ONETIME ONE Stop: 07/29/20 06:25 Influenza Virus Vaccine (Fluzone Quad 1478-4240 Syringe) 60 mcg IM .ONCE ONE Stop: 07/29/20 07:01 Metoclopramide HCl (Reglan) Confirm Administered Dose 10 mg .ROUTE .STK-MED ONE Stop: 07/29/20 08:38 Morphine Sulfate (Duramorph Pf) Confirm Administered Dose 10 mg .ROUTE .STK-MED ONE Stop: 07/29/20 07:12 Octyl Cyanoacrylate (Dermabond Advance) Confirm Administered Dose 1 applic .ROUTE .STK-MED ONE Stop: 07/29/20 07:26 Ondansetron HCl (Zofran) Confirm Administered Dose 4 mg .ROUTE .STK-MED ONE Stop: 07/29/20 07:12 Oxytocin (Pitocin) Confirm Administered Dose 30 unit .ROUTE .STK-MED ONE Stop: 07/29/20 07:12 - Problem List & Annotations (1) Status post repeat low transverse section SNOMED Code(s): 619222715, 27469479, 833566463, 451064918, 048884466 Code(s): Z98.891 - HISTORY OF UTERINE SCAR FROM PREVIOUS SURGERY Status: Acute Priority: Medium Current Visit: Yes - Problem List Review Problem List Initiated/Reviewed/Updated: Yes - My Orders Last 24 Hours: My Active Orders 07/29/20 05:32 RPR (SYPHILIS SERO) W/ RFLX [REF] Routine 07/29/20 05:46 Sodium Chloride 0.9% [Normal Saline] 10 ml IV ASDIRECTED PRN Sodium Chloride 0.9% [Saline Flush] 10 ml FLUSH ASDIRECTED PRN Sodium Chloride 0.9% [Saline Flush] 2.5 ml FLUSH ASDIRECTED PRN Resuscitation Status Routine 07/29/20 05:47 Up ad Brianne [RC] ASDIRECTED Verify Patient Consent Obtain [RC] ASDIRECTED Vital Signs [RC] PER UNIT ROUTINE Peripheral IV Insertion Adult [OM.PC] Routine Schedule Procedure [COMM] Per Unit Routine 07/29/20 05:49 Notify Provider Vital Signs [RC] PRN 07/29/20 06:00 Lactated Ringers [Ringers, Lactated] 1,000 ml IV BOLUS Oxytocin/0.9 % Sodium Chloride [Oxytocin 30 Unit/500 ML-NS] 30 unit in 500 ml IV TITRATE 07/29/20 09:40 Patient Status [ADT] Routine Ambulate [RC] PER UNIT ROUTINE Communication Order [RC] PER UNIT ROUTINE Communication Order [RC] PER UNIT ROUTINE Communication Order [RC] Per Unit Routine May Shower [RC] ASDIRECTED RT Incentive Spirometry [RC] Q2HWA Acetaminophen/oxyCODONE [Percocet 325-5 MG] 1 tab PO Q4H PRN Acetaminophen/oxyCODONE [Percocet 325-5 MG] 2 tab PO Q4H PRN Ibuprofen [Motrin] 800 mg PO Q8H PRN Lanolin [Lansinoh HPA] See Dose Instructions TOP ASDIRECTED PRN Methylergonovine [Methergine] 0.2 mg IM ONETIME PRN Ondansetron [Zofran] 4 mg IVPUSH Q4H PRN Oxytocin [Pitocin] 10 unit IM ASDIRECTED PRN Tranexamic Acid [Cyklokapron] 1,000 mg Sodium Chloride 0.9% [Normal Saline] 100 ml IV ONETIME bisacodyL [Dulcolax] 10 mg RECTAL ONETIME PRN diphenhydrAMINE [Benadryl] 25 mg IVPUSH Q6H PRN miSOPROStoL [Cytotec] 1,000 mcg RECTAL ONETIME PRN Assess Lochia [WOMSER] Per Unit Routine Assess Uterine Involution [WOMSER] Per Unit Routine Breast Pump [WOMSER] Per Unit Routine Peripheral IV Discontinue [OM.PC] Routine Sequential Compression Device [OM.PC] Per Unit Routine 07/29/20 09:43 Antiembolic Devices [RC] PER UNIT ROUTINE 07/29/20 09:45 Ketorolac [Toradol] 30 mg IVPUSH Q6H Lactated Ringers [Ringers, Lactated] 1,000 ml IV ASDIRECTED 07/29/20 21:00 Docusate Sodium [Colace] 100 mg PO BID 07/30/20 05:11 HEMOGLOBIN/HEMATOCRIT,HH [HEME] Timed - Plan Plan:: Plan for prophylactic surgical antibiotic regimen periop. Operative, blood, and anesthesia consents signed 07/29/2020. Perioperative checklist completed. Plan to proceed with repeat LTCS with subsequent inpatient admission. 07/29/20 18:05 Delivered via uncomplicated scheduled . Delivery details: Female infant Weight: 6'15" : 9/9 EBL 650cc
--- NOTE | 2020-07-29 20:02 | OR ---
SURGEON: Gretchen Smith MD DATE OF PROCEDURE: 07/29/2020 INDICATION FOR SURGERY: Repeat . PREOPERATIVE DIAGNOSES: Term , history of section. POSTOPERATIVE DIAGNOSES: Term , history of section. OPERATION: section. PRIMARY SURGEON: Gretchen Smith MD SECONDARY SURGEON: Mike Chester MD ELEVATOR STARTER: Antonella Leon. ANESTHESIA: Spinal. ESTIMATED BLOOD LOSS: 650 mL. URINE OUTPUT: 170 mL. DRAIN: Cage catheter draining clear urine. SPECIMENS: None. DELIVERY DETAILS: Baby girl. Weight 6 pounds 15 ounces. score at one minute 9, five minutes 9. Placenta delivery method, spontaneous. MATERNAL DELIVERY COMPLICATIONS: None. COMPLICATIONS: None. TECHNIQUE: Joan Stark was taken to the operating room. She was then transferred to the operating table and placed in the dorsal supine position with a leftward tilt. After adequate anesthesia was confirmed, she was prepped and draped in the usual sterile fashion. A time-out was completed. With IV running and Cage catheter draining, a Pfannenstiel skin incision was made. The incision was carried down with the Bovie cautery through the subcutaneous tissue to the underlying rectus fascia. The rectus fascia was incised in the middle and extended laterally. The underlying rectus muscles were dissected off sharply and bluntly. The rectus muscles were then in the midline and the parietal peritoneum was opened. A bladder blade and Duarte retractor were placed. The lower uterine segment was identified in the surgical field. A bladder flap was made and the lower uterine segment was incised in a transverse fashion. The incision was extended laterally with cephalocaudal traction. The 's vertex was delivered atraumatically followed by the remainder of the infant. The cord was clamped and cut, and the infant was handed off to the pediatric staff. Cord blood was collected. The placenta was delivered spontaneously. Significant bleeding was identified at the left angle of the uterine incision, which could possibly be due to the L uterine artery laceration. A figure of 8 utilizing a 0 Vicryl controlled the bleeder. The uterine incision was reapproximated in a running locked stitch fashion utilizing a 0 Vicryl. A second running stitch imbricating the first layer was performed utilizing another 0 Vicryl. A [id number] utilizing a 0 Vicryl was applied and hemostasis was achieved. The bladder blade and Duarte retractor were removed. The peritoneum was closed with a running stitch fashion utilizing a 3-0 Vicryl. The rectus fascia was reapproximated with PDS suture in a running stitch fashion. Subcutaneous tissue was closed with a running stitch utilizing 3-0 Vicryl. The skin was then closed with a 4-0 Monocryl in a subcuticular fashion. All sponges, needle, and instrument counts were correct per the OR staff. The patient was taken back to [facility] in a stable condition. The patient had received 2 g of Ancef prior to the procedure. CINTHIA CUMMINGS /[id number] CARRIE
[2020-07-29] MEDS: Docusate Sodium 100 MG Cap PO SCH (22:16)
[2020-07-30] MEDS: Ketorolac 30 MG/ML SDV IVPUSH SCH ×2 (04:43→10:03)
[2020-07-30] MEDS ORDERED: Octyl 2-Cyanoacrylate 1 Tube ONE (08:02)
--- NOTE | 2020-07-30 08:45 | PCM.PNPP ---
- General Info Date of Service: 07/30/20 Admission Dx/Problem (Free Text): Patient Status Order with Admit Dx/Problem 07/29/20 05:05 Patient Status [ADT] Routine Admission Diagnosis/Problem Admission Diagnosis/Problem 07/29/20 07:47 Joan is a at 38+5 weeks gestation (JOE 07/29/2020) PPD1 S/P repeat low transverse section (LTCS) with H/O primary LTCS 01/2019. NKDA. O pos, RNI, GBS neg. Viktoria-operative ampicillin administered in OR. A1GDM, obesity. Patient has no complaints or concerns at this time except generalized pain upon ambulation, improved with rest. Patient is bottle feeding well, resting comfortably in bed with in bassinet Patient reports she is eating, voiding, ambulating independently and without difficulty. Patient denies any problems or concerns at this time except mild-moderate intermittent uterine cramping relieved with Toradol; plan to start Percocet PO for pain control today. Patient reports moderate vaginal bleeding with no clots. 07/29/20 07:58 Functional Status: Reports: Pain Controlled - Review of Systems General: Reports: No Symptoms HEENT: Reports: No Symptoms Pulmonary: Reports: No Symptoms Cardiovascular: Reports: No Symptoms Gastrointestinal: Reports: No Symptoms Genitourinary: Reports: No Symptoms Musculoskeletal: Reports: No Symptoms Skin: Reports: No Symptoms Neurological: Reports: No Symptoms Psychiatric: Reports: No Symptoms - General Info Date of Service: 07/30/20 - Patient Data Vital Signs - Most Recent: Last Vital Signs Temp 97.7 F 07/30/20 06:00 Pulse 68 07/29/20 15:00 Resp 17 07/30/20 07:00 BP 128/82 07/29/20 20:00 Pulse Ox 96 07/30/20 07:00 Weight - Most Recent: 206 lb I&O - Last 24 Hours: Intake & Output 07/29/20 07/30/20 07/30/20 22:59 06:59 14:59 Intake Total 1000 Output Total 1570 350 Balance -570 -350 Lab Results - Last 24 Hours: Laboratory Results - last 24 hr 07/30/20 Range/Units 06:37 Hgb 10.0 L (12.0-16.0) g/dL Hct 30.3 L (36.0-46.0) % Med Orders - Current: Current Medications Bisacodyl (Dulcolax) 10 mg RECTAL ONETIME PRN PRN Reason: Constipation Diphenhydramine HCl (Benadryl) 25 mg IVPUSH Q6H PRN PRN Reason: Itching or Nausea Last Admin: 07/29/20 11:47 Dose: 25 mg Documented by: Docusate Sodium (Colace) 100 mg PO BID [facility] Last Admin: 07/29/20 22:16 Dose: 100 mg Documented by: Emollient Ointment (Lansinoh Hpa) 0 gm TOP ASDIRECTED PRN PRN Reason: Sore Nipples Oxytocin/Sodium Chloride (Oxytocin 30 Unit/500 Ml-Ns) 30 unit in 500 mls @ 250 mls/hr IV TITRATE [facility] Lactated Ringer's (Ringers, Lactated) 1,000 mls @ 500 mls/hr IV BOLUS [facility] Last Admin: 07/29/20 06:56 Dose: 999 mls/hr Documented by: Lactated Ringer's (Ringers, Lactated) 1,000 mls @ 125 mls/hr IV ASDIRECTED [facility] Last Admin: 07/29/20 15:34 Dose: 125 mls/hr Documented by: Tranexamic Acid 1,000 mg/ (Sodium Chloride) 110 mls @ 660 mls/hr IV ONETIME PRN PRN Reason: Bleeding Ibuprofen (Motrin) 800 mg PO Q8H PRN PRN Reason: mild pain or fever Ketorolac Tromethamine (Toradol) 30 mg IVPUSH Q6H [facility] Stop: 07/30/20 09:46 Last Admin: 07/30/20 04:43 Dose: 30 mg Documented by: Methylergonovine Maleate (Methergine) 0.2 mg IM ONETIME PRN PRN Reason: Excessive Vaginal Bleeding Misoprostol (Cytotec) 1,000 mcg RECTAL ONETIME PRN PRN Reason: excessive bleeding Ondansetron HCl (Zofran) 4 mg IVPUSH Q4H PRN PRN Reason: Nausea/Vomiting Last Admin: 07/29/20 10:16 Dose: 4 mg Documented by: Oxycodone/Acetaminophen (Percocet 325-5 Mg) 1 tab PO ONETIME PRN PRN Reason: Pain (moderate 4-6) Oxycodone/Acetaminophen (Percocet 325-5 Mg) 1 tab PO Q4H PRN PRN Reason: Pain (moderate 4-6) Oxycodone/Acetaminophen (Percocet 325-5 Mg) 2 tab PO Q4H PRN PRN Reason: Pain (moderate 4-6) Oxytocin (Pitocin) 10 unit IM ASDIRECTED PRN PRN Reason: Excessive Vaginal Bleeding Sodium Chloride (Saline Flush) 10 ml FLUSH ASDIRECTED PRN PRN Reason: Keep Vein Open Sodium Chloride (Saline Flush) 2.5 ml FLUSH ASDIRECTED PRN PRN Reason: Keep Vein Open Sodium Chloride (Normal Saline) 10 ml IV ASDIRECTED PRN PRN Reason: IV Use Discontinued Medications Cefazolin Sodium (Ancef) Confirm Administered Dose 2 gm .ROUTE .STK-MED ONE Stop: 07/29/20 07:17 Citric Acid/Sodium Citrate (Bicitra Solution) 30 ml PO ONETIME ONE Stop: 07/29/20 08:01 Last Admin: 07/29/20 07:40 Dose: 30 ml Documented by: Fentanyl (Sublimaze) 50 mcg IVPUSH Q5M PRN PRN Reason: Pain (severe 7-10) Stop: 07/30/20 08:32 Cefazolin Sodium/Dextrose 2 gm (/ Premix) 50 mls @ 100 mls/hr IV ONETIME ONE Stop: 07/29/20 08:29 Sodium Chloride (Normal Saline) Confirm Administered Dose 20 mls @ as directed .ROUTE .STK-MED ONE Stop: 07/29/20 07:17 Influenza Virus Vaccine (Pharmacy To Dose - Influenza Vaccine) 1 each IM ONETIME ONE Stop: 07/29/20 06:25 Influenza Virus Vaccine (Fluzone Quad [id number] Syringe) 60 mcg IM .ONCE ONE Stop: 07/29/20 07:01 Metoclopramide HCl (Reglan) Confirm Administered Dose 10 mg .ROUTE .STK-MED ONE Stop: 07/29/20 08:38 Morphine Sulfate (Duramorph Pf) Confirm Administered Dose 10 mg .ROUTE .STK-MED ONE Stop: 07/29/20 07:12 Octyl Cyanoacrylate (Dermabond Advance) Confirm Administered Dose 1 applic .ROUTE .STK-MED ONE Stop: 07/29/20 07:26 Octyl Cyanoacrylate (Dermabond Advance) Confirm Administered Dose 1 applic .ROUTE .STK-MED ONE Stop: 07/30/20 08:03 Ondansetron HCl (Zofran) Confirm Administered Dose 4 mg .ROUTE .STK-MED ONE Stop: 07/29/20 07:12 Oxytocin (Pitocin) Confirm Administered Dose 30 unit .ROUTE .STK-MED ONE Stop: 07/29/20 07:12 - Infant Interaction Disposition, : at Bedside Interaction: Not Interacting Infant Feeding: Bottle Fed Infant Support Person: - Recovery Exam Fundal Tone: Firm Fundal Level: At Umbilicus Fundal Placement: Midline Lochia Amount: Moderate Lochia Color: Rubra/Red Episiotomy/Laceration: None Bladder Status: Nonpalpable (Cage catheter removed at 0630 today, has not voided yet.) Urinary Elimination: Not Voiding Other Urinary Elimination, : Due to void - Exam General: Alert, Oriented, Cooperative, No Acute Distress HEENT: Pupils Equal, Pupils Reactive, Mucous Membr. Moist/Shindler Neck: Supple Lungs: Clear to Auscultation, Normal Respiratory Effort Cardiovascular: Regular Rate, Regular Rhythm GI/Abdominal Exam: Normal Bowel Sounds, Soft, Non-Tender, No Organomegaly, No Distention Extremities: Normal Inspection, Normal Range of Motion, Non-Tender, No Pedal Edema, Normal Capillary Refill Skin: Warm, Dry, Intact Wound/Incisions: Dressing Dry and Intact (LTCS incision dressing removed. Small old blood noted on old dressing. Cleanse with chlorhexadine, reinforced with dermabond application at bedside. Left STEPH.) Neurological: No New Focal Deficit Psy/Mental Status: Alert, Normal Affect, Normal Mood - Problem List & Annotations (1) Delivery by section using transverse incision of lower segment of uterus SNOMED Code(s): 441488976 Code(s): O82 - ENCOUNTER FOR DELIVERY WITHOUT INDICATION Status: Deleted Priority: High Current Visit: Yes (2) 38 weeks gestation of SNOMED Code(s): 39463674 Code(s): Z3A.38 - 38 WEEKS GESTATION OF Status: Acute Priority: High Current Visit: Yes - Problem List Review Problem List Initiated/Reviewed/Updated: Yes - Plan Plan:: Hemodynamically stable, afebrile. Hemoglobin 10.0, F/U as indicated. Start PO pain management regimen as prescribed. Continue eating, hydrating, ambulating, and feeding baby independently. Due to void prior to 12:30 pm today. If void has not occurred by 12:30 pm today, bladder scan patient and notify on-call provider. Dr. Chester notified and agreeable with POC.
[2020-07-30] MEDS: Docusate Sodium 100 MG Cap PO SCH ×2 (10:02→21:16)
[2020-07-30] MEDS: Ibuprofen 800 MG Tab PO PRN (16:11)
[2020-07-30] MEDS: Acetaminophen/oxyCODONE 325-5 MG Tab PO PRN ×2 (17:07→21:17)
[2020-07-31] MEDS: Acetaminophen/oxyCODONE 325-5 MG Tab PO PRN ×2 (04:58→11:37)
[2020-07-31] MEDS: Ibuprofen 800 MG Tab PO PRN ×2 (09:08)
--- NOTE | 2020-07-31 09:24 | PCM48HPAN ---
Post Anesthesia Note - EVALUATION WITHIN 48HRS OF ANESTHETIC Vital Signs in Normal Range: Yes Patient Participated in Evaluation: Yes Respiratory Function Stable: Yes Airway Patent: Yes Cardiovascular Function Stable: Yes Hydration Status Stable: Yes Pain Control Satisfactory: Yes (Some soreness. Analgesics controlling.) Nausea and Vomiting Control Satisfactory: Yes Mental Status Recovered: Yes Vital Signs: Last Vital Signs Temp 36.8 C 07/31/20 05:20 Pulse 72 07/31/20 05:20 Resp 18 07/31/20 05:20 BP 132/79 07/31/20 05:20 Pulse Ox 98 07/31/20 05:20 - COMMENTS/OBSERVATIONS Free Text/Narrative:: Doing well.
[2020-07-31] MEDS: Docusate Sodium 100 MG Cap PO SCH (09:57)
--- NOTE | 2020-07-31 11:25 | PCM.DCSUM1 ---
Discharge Summary - Hospital Course Free Text/Narrative:: Joan is a G3 now P2 at 38+5 weeks gestation who was admitted for repeat low transverse section Delivered via uncomplicated scheduled . Delivery details: Female infant Weight: 6'15" : 9/9 EBL 650cc stay unremarkable. Today reports minimal lochia. Ambulate without dizziness or lightheadedness. Has passed gas, and voiding without any issues. Denies CP or SOB. Ready to be discharged home. Diagnosis: Stroke: No - Discharge Data Discharge Date: 07/31/20 Discharge Disposition: Home, Self-Care 01 Condition: Good - Referral to Home Health Primary Care Physician: Laila Junior NP - Discharge Diagnosis/Problem(s) (1) Status post repeat low transverse section SNOMED Code(s): 620932623, 79627004, 455593742, 824123263, 563482901 ICD Code: Z98.891 - HISTORY OF UTERINE SCAR FROM PREVIOUS SURGERY Status: Acute Priority: Medium Current Visit: Yes - Patient Instructions Diet: Regular Diet as Tolerated - Discharge Plan *PRESCRIPTION DRUG MONITORING PROGRAM REVIEWED*: Not Applicable *COPY OF PRESCRIPTION DRUG MONITORING REPORT IN PATIENT VEE: Not Applicable Home Medications: Home Meds Pnv No.95/Ferrous Fum/Folic AC [ Caplet] 1 each PO DAILY 12/14/18 [History] Referrals: [facility] [Outside] Mike Chester MD [Physician] - (1 week- August 06@ 2:45pm w/ Dr. Chester week- September 08@ 3:00pm w/ Dr. Chester ) - Discharge Summary/Plan Comment DC Time >30 min.: Yes Discharge Summary/Plan Comment: Joan is a G3 now P2 at 38+5 weeks gestation who was admitted for repeat low transverse section Delivered via uncomplicated scheduled . Delivery details: Female Weight: 6'15" : 9/9 EBL 650cc stay unremarkable. Clear to be discharge home. Follow-up in clinic for incision check in 1-2 weeks - General Info Date of Service: 07/31/20 Admission Dx/Problem (Free Text: Patient Status Order with Admit Dx/Problem 07/29/20 05:05 Patient Status [ADT] Routine Admission Diagnosis/Problem Admission Diagnosis/Problem 07/29/20 07:47 Joan is a at 38+5 weeks gestation (JOE 07/29/2020) PPD1 S/P repeat low transverse section (LTCS) with H/O primary LTCS 01/2019. NKDA. O pos, RNI, GBS neg. Viktoria-operative ampicillin administered in OR. A1GDM, obesity. Patient has no complaints or concerns at this time except generalized pain upon ambulation, improved with rest. Patient is bottle feeding well, resting comfortably in bed with in bassinet Patient reports she is eating, voiding, ambulating independently and without difficulty. Patient denies any problems or concerns at this time except mild-moderate intermittent uterine cramping relieved with Toradol; plan to start Percocet PO for pain control today. Patient reports moderate vaginal bleeding with no clots. 07/29/20 07:58 Subjective Update: Delivered via uncomplicated scheduled . Delivery details: Female Weight: 6'15" : 9/9 EBL 650cc Today reports minimal lochia. Ambulate without dizziness or lightheadedness. Has passed gas, and voiding without any issues. Denies CP or SOB. Ready to be discharged home. Functional Status: Reports: Pain Controlled - Review of Systems General: Reports: No Symptoms HEENT: Reports: No Symptoms Pulmonary: Reports: No Symptoms Cardiovascular: Reports: No Symptoms Gastrointestinal: Reports: No Symptoms Genitourinary: Reports: No Symptoms Musculoskeletal: Reports: No Symptoms Skin: Reports: No Symptoms Neurological: Reports: No Symptoms Psychiatric: Reports: No Symptoms - Patient Data Vitals - Most Recent: Last Vital Signs Temp 98.4 F 07/31/20 08:00 Pulse 79 07/31/20 08:00 Resp 18 07/31/20 08:00 BP 124/78 07/31/20 08:00 Pulse Ox 96 07/31/20 08:00 Weight - Most Recent: 93.44 kg Lab Results - Last 24 hrs: Laboratory Results - last 24 hr 07/29/20 Range/Units 05:32 RPR Non-Reac (Non-Reac) Med Orders - Current: Current Medications Bisacodyl (Dulcolax) 10 mg RECTAL ONETIME PRN PRN Reason: Constipation Diphenhydramine HCl (Benadryl) 25 mg IVPUSH Q6H PRN PRN Reason: Itching or Nausea Last Admin: 11/05/20 11:47 Dose: 25 mg Documented by: Docusate Sodium (Colace) 100 mg PO BID [facility] Last Admin: 07/31/20 09:57 Dose: 100 mg Documented by: Emollient Ointment (Lansinoh Hpa) 0 gm TOP ASDIRECTED PRN PRN Reason: Sore Nipples Oxytocin/Sodium Chloride (Oxytocin 30 Unit/500 Ml-Ns) 30 unit in 500 mls @ 250 mls/hr IV TITRATE [facility] Lactated Ringer's (Ringers, Lactated) 1,000 mls @ 500 mls/hr IV BOLUS [facility] Last Admin: 07/29/20 06:56 Dose: 999 mls/hr Documented by: Lactated Ringer's (Ringers, Lactated) 1,000 mls @ 125 mls/hr IV ASDIRECTED [facility] Last Admin: 07/29/20 15:34 Dose: 125 mls/hr Documented by: Tranexamic Acid 1,000 mg/ (Sodium Chloride) 110 mls @ 660 mls/hr IV ONETIME PRN PRN Reason: Bleeding Ibuprofen (Motrin) 800 mg PO Q8H PRN PRN Reason: mild pain or fever Last Admin: 07/31/20 09:08 Dose: 800 mg Documented by: Methylergonovine Maleate (Methergine) 0.2 mg IM ONETIME PRN PRN Reason: Excessive Vaginal Bleeding Misoprostol (Cytotec) 1,000 mcg RECTAL ONETIME PRN PRN Reason: excessive bleeding Ondansetron HCl (Zofran) 4 mg IVPUSH Q4H PRN PRN Reason: Nausea/Vomiting Last Admin: 07/29/20 10:16 Dose: 4 mg Documented by: Oxycodone/Acetaminophen (Percocet 325-5 Mg) 1 tab PO ONETIME PRN PRN Reason: Pain (moderate 4-6) Oxycodone/Acetaminophen (Percocet 325-5 Mg) 1 tab PO Q4H PRN PRN Reason: Pain (moderate 4-6) Last Admin: 07/30/20 12:20 Dose: 1 tab Documented by: Oxycodone/Acetaminophen (Percocet 325-5 Mg) 2 tab PO Q4H PRN PRN Reason: Pain (moderate 4-6) Last Admin: 07/31/20 04:58 Dose: 2 tab Documented by: Oxytocin (Pitocin) 10 unit IM ASDIRECTED PRN PRN Reason: Excessive Vaginal Bleeding Sodium Chloride (Saline Flush) 10 ml FLUSH ASDIRECTED PRN PRN Reason: Keep Vein Open Sodium Chloride (Saline Flush) 2.5 ml FLUSH ASDIRECTED PRN PRN Reason: Keep Vein Open Sodium Chloride (Normal Saline) 10 ml IV ASDIRECTED PRN PRN Reason: IV Use Discontinued Medications Cefazolin Sodium (Ancef) Confirm Administered Dose 2 gm .ROUTE .STK-MED ONE Stop: 07/29/20 07:17 Citric Acid/Sodium Citrate (Bicitra Solution) 30 ml PO ONETIME ONE Stop: 07/29/20 08:01 Last Admin: 07/29/20 07:40 Dose: 30 ml Documented by: Fentanyl (Sublimaze) 50 mcg IVPUSH Q5M PRN PRN Reason: Pain (severe 7-10) Stop: 07/30/20 08:32 Cefazolin Sodium/Dextrose 2 gm (/ Premix) 50 mls @ 100 mls/hr IV ONETIME ONE Stop: 07/29/20 08:29 Sodium Chloride (Normal Saline) Confirm Administered Dose 20 mls @ as directed .ROUTE .STK-MED ONE Stop: 07/29/20 07:17 Influenza Virus Vaccine (Pharmacy To Dose - Influenza Vaccine) 1 each IM ONETIME ONE Stop: 07/29/20 06:25 Influenza Virus Vaccine (Fluzone Quad [id number] Syringe) 60 mcg IM .ONCE ONE Stop: 07/29/20 07:01 Ketorolac Tromethamine (Toradol) 30 mg IVPUSH Q6H [facility] Stop: 07/30/20 09:46 Last Admin: 07/30/20 10:03 Dose: 30 mg Documented by: Metoclopramide HCl (Reglan) Confirm Administered Dose 10 mg .ROUTE .STK-MED ONE Stop: 07/29/20 08:38 Morphine Sulfate (Duramorph Pf) Confirm Administered Dose 10 mg .ROUTE .STK-MED ONE Stop: 07/29/20 07:12 Octyl Cyanoacrylate (Dermabond Advance) Confirm Administered Dose 1 applic .ROUTE .STK-MED ONE Stop: 07/29/20 07:26 Octyl Cyanoacrylate (Dermabond Advance) Confirm Administered Dose 1 applic .ROUTE .STK-MED ONE Stop: 07/30/20 08:03 Ondansetron HCl (Zofran) Confirm Administered Dose 4 mg .ROUTE .STK-MED ONE Stop: 07/29/20 07:12 Oxytocin (Pitocin) Confirm Administered Dose 30 unit .ROUTE .STK-MED ONE Stop: 07/29/20 07:12 - Exam General: Reports: Alert, Oriented HEENT: Reports: Pupils Reactive Neck: Reports: Supple Lungs: Reports: Normal Respiratory Effort Cardiovascular: Reports: Regular Rate GI/Abdominal Exam: Soft, Non-Tender, No Organomegaly, No Distention Extremities: Normal Inspection, Non-Tender, No Pedal Edema Skin: Reports: Warm Wound/Incisions: Reports: Healing Well, No Drainage Psy/Mental Status: Reports: Alert, Normal Affect, Normal Mood
== END 2020-07-31 14:10 | disposition home or self-care (01) | DRG 788 ==
LOC: MW.SDS 05:05 → MW.OB 05:15 → MW.SDS 05:15 → MW.OB 05:57 → EDSTATUS 08:00 → MW.OB 12:41
PROVIDERS: ADMIT Obstetrics & Gynecology; ATTEND Obstetrics & Gynecology
PROC: 10D00Z1 Extraction of Products of Conception, Low, Open Approach (ICD-10-PCS; principal; 2020-07-29)
DX: O34.211 Maternal care for low transverse scar from previous cesarean delivery (principal); Z3A.38 38 weeks gestation of pregnancy; Z37.0 Single live birth; O99.214 Obesity complicating childbirth; E66.9 Obesity, unspecified; O69.81X0 Labor and delivery complicated by cord around neck, without compression, not applicable or unspecified
CPT/HCPCS: 36415; 59025; 85014; 85018; 85027; 86592; 86850; 86900; 86901; A9270-GY; J0690; J1200; J1885; J2270; J2405; J2590; J2765; J7120

== ENCOUNTER 2020-08-01 14:04 | Emergency (ER) | payer MEDICAID ==
[2020-08-01] MEDS ORDERED: Morphine 2 MG/ML SYRINGE IVPUSH ONE (15:58)
[2020-08-01] MEDS ORDERED: Sodium Chloride 0.9% 10 ML Syringe FLUSH PRN (15:58)
[2020-08-01] MEDS ORDERED: Ketorolac 30 MG/ML SDV IVPUSH ONE (15:58)
[2020-08-01] MEDS ORDERED: Sodium Chloride 0.9% 2.5 ML Syringe FLUSH PRN (15:58)
--- NOTE | 2020-08-01 16:06 | EDM.PDOC ---
ED HPI GENERAL MEDICAL PROBLEM - General Chief Complaint: Abdominal Pain Stated Complaint: SURGERY Time Seen by Provider: 08/01/20 15:07 Source of Information: Reports: Patient History Limitations: Reports: No Limitations - History of Present Illness INITIAL COMMENTS - FREE TEXT/NARRATIVE: HISTORY AND PHYSICAL: History of present illness: Patient is a 29-year-old female who presents to the ED today with concern of increasing abdominal pain following a section that was done on 07/29/2020 and was discharged yesterday 07/31/2020. Patient states she had a repeat by Dr. Smith/Dr. Chester and did not have any complications. Patient states that she had a routine hospital stay and had some discomfort of her abdomen. Patient states starting early this morning she began having a sudden increase in her abdominal pain surrounding the site. Patient states that she has had prior C-sections and this is more painful than any of her surgeries have been. Patient states she also noted a small amount of blood on the left side of the incision site. Patient denies any redness of the incision site. Patient states that she has Percocet available to her at home and has been taking this as scheduled and states that she is had continued increasing pain despite this. Patient states that she does have vaginal bleeding but states that this is not heavy and is normal amount of bleeding following her c sections. Patient denies fever, chills, chest pain, shortness of breath, or cough. Denies headache, neck stiff ness, change in vision, syncope, or near syncope. Denies nausea, vomiting, diarrhea, constipation, or dysuria. Has not noted any blood in urine or stool. Patient has been eating and drinking appropriately. Review of systems: As per history of present illness and below otherwise all systems reviewed and negative. Past medical history: As per history of present illness and as reviewed below otherwise noncontributo ry. Surgical history: As per history of present illness and as reviewed below otherwise noncontributory. Social history: See social history for further information Family history: As per history of present illness and as reviewed below otherwise noncontributory. Physical exam: General: Patient is alert, oriented, and in no acute distress. Patient sitting comfortably on exam table. HEENT: Atraumatic, normocephalic, pupils equal and reactive bilaterally, negative for conjunctival pallor or scleral icterus, mucous membranes moist, TMs normal bilaterally, throat clear, neck supple, nontender, trachea midline. No drooling or trismus noted. No meningeal signs. No hot potato voice noted. Lungs: Clear to auscultation, breath sounds equal bilaterally, chest nontender. Heart: S1S2, regular rate and rhythm without overt murmur Abdomen: Recent caesarian incision along the suprapubic region with a small amount of dried bright red blood along the left side of the incision that is not actively bleeding. No drainage, or erythema noted of the incision. Exam of the abdomen is limited due to pain. Otherwise, soft, nondistended. Negative for masses or hepatosplenomegaly. Negative for costovertebral tenderness. Pelvis: Stable nontender. Genitourinary: Deferred. Rectal: Deferred. Skin: Intact, warm, dry. No lesions or rashes noted. Extremities: Atraumatic, negative for cords or calf pain. Neurovascular unremarkable. Neuro: Awake, alert, oriented. Cranial nerves II through XII unremarkable. Cerebellum unremarkable. Motor and sensory unremarkable throughout. Exam nonfocal. Notes: BP on my exam 124/84, although triage BP elevated, I have rechecked her BP prior to any intervention multiple times on my initial exam and not elevated. Hgb is at 10 today and stable from discharge yesterday which hgb yesterday of 10. BP at discharge 120s/80s as well. I did call and speak to YELENA Mcelroy stitcher tape controlled machine and who performed patients surgery, and thoroughly discussed patients case. Dr. Smith would like to see patient in the clinic tomorrow and instructed patient to call the clinic in the morning to establish an appointment time. Signs and symptoms that would prompt return to the ED thoroughly discussed with patient. Discussed importance for follow-up tomorrow with her [employer] provider, Dr. Smith. Voices understanding and is agreeable to plan of care. Denies any further questions or concerns at this time. Diagnostics: CBC, CMP, Abd/pelvic w cont Therapeutics: NS, Toradol, Morphine Prescription: None Impression: Post op abdominal pain, day 3 Plan: 1. Continue to take the pain medication as prescribed to you prior as directed and as discussed. 2. Call Dr. Smith's clinic tomorrow to be seen tomorrow in the clinic. The number has been provided above for you to establish an appointment time for tomorrow. 3. Return to the ED as needed and as discussed. Definitive disposition and diagnosis as appropriate pending reevaluation and review of above. 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 Musculoskeletal History: Reports: None Neurological History: Reports: None Psychiatric History: Reports: Depression Endocrine/Metabolic History: Reports: Diabetes, Gestational, Obesity/BMI 30+ Hematologic History: Reports: None Immunologic History: Reports: None Oncologic (Cancer) History: Reports: None Dermatologic History: Reports: None - Infectious Disease History Infectious Disease History: Reports: Chicken Pox Other Infectious Disease History: Chicken pox as a child. - Past Surgical History Head Surgeries/Procedures: Reports: None HEENT Surgical History: Reports: Oral Surgery GI Surgical History: Reports: Appendectomy Female Surgical History: Reports: Section Endocrine Surgical History: Reports: None Social & Family History - Family History Family Medical History: Noncontributory Cardiac: Reports: High Cholesterol, Hypertension OBGYN: Reports: Psychiatric: Reports: Depression Endocrine/Metabolic: Reports: Diabetes, type II - Tobacco Use Tobacco Use Status *Q: Never Tobacco User Second Hand Smoke Exposure: No - Caffeine Use Caffeine Use: Reports: Soda - Recreational Drug Use Recreational Drug Use: No ED ROS GENERAL - Review of Systems Review Of Systems: Comprehensive ROS is negative, except as noted in HPI. ED EXAM, GENERAL - Physical Exam Exam: See Below (see dictation) Course - Vital Signs Last Recorded V/S: Last Vital Signs Temp 97.7 F 08/01/20 15:26 Pulse 87 08/01/20 15:26 Resp 18 08/01/20 15:26 BP 124/84 08/01/20 18:37 Pulse Ox 97 08/01/20 15:26 - Orders/Labs/Meds Orders: Active Orders 24 hr Category Date Time Status Sodium Chloride 0.9% [Saline Flush] Med 08/01/20 15:58 Active 10 ml FLUSH ASDIRECTED PRN Sodium Chloride 0.9% [Saline Flush] Med 08/01/20 15:58 Active 2.5 ml FLUSH ASDIRECTED PRN Saline Lock Insert [OM.PC] Stat Oth 08/01/20 15:58 Ordered Medication Orders Sodium Chloride (Saline Flush) 10 ml FLUSH ASDIRECTED PRN PRN Reason: Keep Vein Open Last Admin: 08/01/20 16:30 Dose: 10 ml Documented by: SABRINA Sodium Chloride (Saline Flush) 2.5 ml FLUSH ASDIRECTED PRN PRN Reason: Keep Vein Open Last Admin: 08/01/20 16:30 Dose: 2.5 ml Documented by: SABRINA Labs: Laboratory Tests 08/01/20 08/01/20 Range/Units 16:21 16:21 WBC 7.46 (4.0-11.0) K/uL RBC 3.12 L (4.30-5.90) M/uL Hgb 10.0 L (12.0-16.0) g/dL Hct 30.0 L (36.0-46.0) % MCV 96.2 (80.0-98.0) fL MCH 32.1 H (27.0-32.0) pg MCHC 33.3 (31.0-37.0) g/dL RDW Std Deviation 48.5 (28.0-62.0) fl RDW Coeff of Katie 14 (11.0-15.0) % Plt Count 159 (150-400) K/uL MPV 11.30 (7.40-12.00) fL Neut % (Auto) 73.0 (48.0-80.0) % Lymph % (Auto) 19.2 (16.0-40.0) % [place] % (Auto) 5.2 (0.0-15.0) % Eos % (Auto) 2.5 (0.0-7.0) % Baso % (Auto) 0.1 (0.0-1.5) % Neut # (Auto) 5.4 (1.4-5.7) K/uL Lymph # (Auto) 1.4 (0.6-2.4) K/uL [place] # (Auto) 0.4 (0.0-0.8) K/uL Eos # (Auto) 0.2 (0.0-0.7) K/uL Baso # (Auto) 0.0 (0.0-0.1) K/uL Nucleated RBC % 0.0 /100WBC Nucleated RBCs # 0 K/uL Sodium 139 (136-145) mmol/L Potassium 4.0 (3.5-5.1) mmol/L Chloride 105 (98-107) mmol/L Carbon Dioxide 25.9 (21.0-32.0) mmol/L BUN 7 (7.0-18.0) mg/dL Creatinine 0.7 (0.6-1.0) mg/dL Est Cr Clr Drug Dosing 117.39 mL/min Estimated GFR (MDRD) > 60.0 ml/min Glucose 95 (74-106) mg/dL Calcium 8.9 (8.5-10.1) mg/dL Total Bilirubin 0.2 (0.2-1.0) mg/dL AST 34 (15-37) IU/L ALT 19 (14-63) IU/L Alkaline Phosphatase 102 (46-116) U/L Total Protein 6.9 (6.4-8.2) g/dL Albumin 2.5 L (3.4-5.0) g/dL Globulin 4.4 H (2.6-4.0) g/dL Albumin/Globulin Ratio 0.6 L (0.9-1.6) Meds: Medications Generic Name Dose Route Start Last Admin Trade Name Freq PRN Reason Stop Dose Admin Sodium Chloride 10 ml 08/01/20 15:58 08/01/20 16:30 Saline Flush FLUSH 10 ml ASDIRECTED PRN Administration Keep Vein Open Sodium Chloride 2.5 ml 08/01/20 15:58 08/01/20 16:30 Saline Flush FLUSH 2.5 ml ASDIRECTED PRN Administration Keep Vein Open Discontinued Medications Generic Name Dose Route Start Last Admin Trade Name Freq PRN Reason Stop Dose Admin Iopamidol 100 ml 08/01/20 17:54 08/01/20 17:55 Isovue Multipack-370 (76%) IVPUSH 08/01/20 17:55 100 ml ONETIME ONE Administration Ketorolac Tromethamine 30 mg 08/01/20 15:58 08/01/20 16:27 Toradol IVPUSH 08/01/20 15:59 30 mg ONETIME ONE Administration Morphine Sulfate 2 mg 08/01/20 15:58 08/01/20 16:29 Morphine IVPUSH 08/01/20 15:59 2 mg ONETIME ONE Administration Departure - Departure Time of Disposition: 18:38 Disposition: Home, Self-Care 01 Clinical Impression: Post-op pain - Discharge Information Referrals: PCP,None [Primary Care Provider] - Forms: ED Department Discharge Additional Instructions: The following information is given to patients seen in the emergency department who are being discharged to home. This information is to outline your options for follow-up care. We provide all patients seen in our emergency department with a follow-up referral. The need for follow-up, as well as the timing and circumstances, are variable depending upon the specifics of your emergency department visit. If you don't have a primary care physician on staff, we will provide you with a referral. We always advise you to contact your personal physician following an emergency department visit to inform them of the circumstance of the visit and for follow-up with them and/or the need for any referrals to a consulting specialist. The emergency department will also refer you to a specialist when appropriate. This referral assures that you have the opportunity for follow-up care with a specialist. All of these measure are taken in an effort to provide you with optimal care, which includes your follow-up. Under all circumstances we always encourage you to contact your private physician who remains a resource for coordinating your care. When calling for follow-up care, please make the office aware that this follow-up is from your recent emergency room visit. If for any reason you are refused follow-up, please contact the [facility] Emergency Department at and asked to speak to the emergency department charge nurse. [facility], Dr. Smith [address] [place] [address] [id number] [address] [id number] 1. Continue to take the pain medication as prescribed to you prior as directed and as discussed. 2. Call Dr. Smith's clinic tomorrow to be seen tomorrow in the clinic. The number has been provided above for you to establish an appointment time for tomorrow. 3. Return to the ED as needed and as discussed. Sepsis Event Note (ED) - Evaluation Sepsis Screening Result: No Definite Risk - Focused Exam Vital Signs: Vital Signs Temp Pulse Resp BP Pulse Ox 08/01/20 18:37 124/84 08/01/20 15:26 97.7 F 87 18 143/85 H 97 - My Orders Last 24 Hours: My Active Orders 08/01/20 15:58 Sodium Chloride 0.9% [Saline Flush] 10 ml FLUSH ASDIRECTED PRN Sodium Chloride 0.9% [Saline Flush] 2.5 ml FLUSH ASDIRECTED PRN Saline Lock Insert [OM.PC] Stat - Assessment/Plan Last 24 Hours: My Active Orders 08/01/20 15:58 Sodium Chloride 0.9% [Saline Flush] 10 ml FLUSH ASDIRECTED PRN Sodium Chloride 0.9% [Saline Flush] 2.5 ml FLUSH ASDIRECTED PRN Saline Lock Insert [OM.PC] Stat
[2020-08-01 16:52] LABS: BLOOD UREA NITROGEN,BUN 7 mg/dL (7.0-18.0); CARBON DIOXIDE,CO2 25.9 mmol/L (21.0-32.0); CHLORIDE,CL 105 mmol/L (98-107); GLUCOSE RANDOM 95 mg/dL (74-106); SODIUM,NA 139 mmol/L (136-145)
[2020-08-01] MEDS ORDERED: Iopamidol 755 MG/ML 500 ML Multipack Bottle IVPUSH ONE (17:54)
--- NOTE | 2020-08-01 18:21 | CT ---
HISTORY: Abdominal pain. section. TECHNIQUE: Intravenous contrast enhanced CT of the abdomen and pelvis. 100 mL of Isovue-370 intravenous contrast administered. COMPARISON: No prior. FINDINGS: No focal liver lesion. No biliary ductal dilatation. Gallbladder is nondistended. Spleen and adrenal glands are normal. No focal pancreatic abnormality. No hydronephrosis. There are a few sub cm low-density renal lesions which are too small to characterize though may represent small cysts. Urinary bladder is mildly distended. - Uterus is enlarged compatible with state. There is some heterogeneity of the anterior lower uterine segment related to recent section. Small amount of gas is present within the anterior pelvic wall likely related the recent procedure. Mild infiltration of the anterior soft tissues is an expected postoperative finding. Small amount of pelvic free fluid. - No small bowel obstruction. Patient is potentially status post appendectomy. No diverticulitis. - No abdominal aortic aneurysm. - No acute lung infiltrate or pleural effusion. IMPRESSION: 1. Postsurgical changes compatible with a recent section. 2. Soft tissue gas and mild infiltration of the anterior pelvic wall are expected postoperative findings. 3. Enlarged uterus compatible with state. Dictated by Ishmael Shea MD @ 08/01/2020 6:21:15 PM Please note that all CT scans at this facility use dose modulation, iterative reconstruction, and/or weight-based dosing when appropriate to reduce radiation dose to as low as reasonably achievable. Dictated by: Ishmael Shea MD @ 08/01/2020 18:21:23 (Electronically Signed)
== END 2020-08-01 18:54 | disposition home or self-care (01) ==
LOC: MW.ED 14:04
DX: O99.893 Other specified diseases and conditions complicating puerperium (principal); R10.9 Unspecified abdominal pain; O99.215 Obesity complicating the puerperium; Z90.49 Acquired absence of other specified parts of digestive tract; Z68.30 Body mass index [BMI] 30.0-30.9, adult
CPT/HCPCS: 36415; 74177; 80053; 85025; 96374; 96375; 99284; J1885; J2270; Q9967